=== PATIENT | female | born 1995 | race Caucasian/White ===

== ENCOUNTER 2024-08-30 12:44 | Emergency (ER) | payer OTHER, SELFPAY ==
[2024-08-30 12:44] VITALS: BP 147/99; PULSE 84; RESP 14; TEMP 36.6; O2SAT 98
--- NOTE | 2024-08-30 13:01 | EX.ED.DYSGE1 ---
HPI <Dr. Brad Koch DO - Last Filed: 08/31/24 17:59> History of Present Illness Chief Complaint: Nausea/Vomiting <ADI Espinosa - Last Filed: 08/30/24 19:53> Narrative Narrative: 28-year-old female presents with postoperative nausea and vomiting after a bile duct stent removal earlier this week. She had a cholecystectomy on June 14, 2024 at [facility] complicated by a bile duct injury and had a bile stent placed the next week at [facility]. She has the stent removed 5 days ago by [facility] general surgeon Dr. Isma Schneider. She states she was nauseous and vomiting immediately after the procedure which has continued since then. She has had multiple emergency room visits. On Monday when the stent was removed she went to [facility] and was discharged with Phenergan suppositories. She had 2 visits to [facility] on Monday and and was treated with IV fluids, Zofran, and Haldol. She reports having a negative CT scan. At home she has Zofran ODT, Haldol, and Phenergan suppositories but they are not helping and she feels weak and dehydrated. She has abdominal discomfort. She is not sure when her last bowel movement was. No urinary symptoms. She spoke to her surgeon who did not think this was related to the stent removal. She also has a history of remote appendectomy. PFSH <Dr. Brad Koch DO - Last Filed: 08/31/24 17:59> [facility] Home Medications ?Medication ?Instructions ?Recorded ?Last Taken ?Type haloperidol 5 mg tablet 5 mg PO Q12H PRN PRN 08/30/24 Unknown History nausea/vomiting omeprazole 40 mg capsule,delayed 40 mg PO DAILY 30 days #30 caps 08/30/24 Unknown Rx release ondansetron 4 mg disintegrating 4 mg PO TID PRN PRN nausea 08/30/24 Unknown History tablet promethazine 25 mg rectal 12.5 mg DC Q4H PRN PRN 08/30/24 Unknown History suppository (Promethegan) nausea/vomiting Allergy/AdvReac Type Severity Reaction Status Date / Time No Known Allergies Allergy Verified 08/30/24 12:45 Surgical History (Updated 08/30/24 @ 13:26 by Bernice Aguirre) History of biliary duct stent placement Social History Smoking Status: Unknown if ever smoked ROS <ADI Espinosa - Last Filed: 08/30/24 19:53> ROS ED ROS Narrative Constitutional: Negative for fever, chills, malaise. CVS: Negative for chest pain. Respiratory: Negative for shortness of breath, cough. GI: Positive for abdominal pain, nausea, vomiting. : Negative for dysuria, hematuria or frequency. EXAM <Dr. Brad Koch DO - Last Filed: 08/31/24 17:59> Physical Exam Const Vital Signs: 08/30/24 12:44 08/30/24 15:01 08/30/24 16:14 Temperature 98 F 99 F Temperature Source Temporal Oral Pulse Rate 84 78 67 Respiratory Rate 14 14 18 Blood Pressure 147/99 H 155/91 H 144/96 H Blood Pressure Mean 115 112 112 Pulse Ox 98 98 98 Oxygen Delivery Method Room Air Room Air Room Air <ADI Espinosa - Last Filed: 08/30/24 19:53> Physical Exam Narrative Exam Narrative: CONST: Patient appears uncomfortable lying in bed. EYES: Normal inspection. NECK: Normal inspection. RESP: No respiratory distress, CTAB. CVS: Regular rate and rhythm, no murmur, no gallop. ABD: Soft with generalized tenderness, no guarding or rebound, nondistended. Healed laparoscopic incisions. EXTREMITIES: Normal appearance, no pedal edema. NEURO: Alert and answering questions appropriately. PSYCH: Normal affect. Const Vital Signs: 08/30/24 12:44 08/30/24 15:01 08/30/24 16:14 Temperature 98 F 99 F Temperature Source Temporal Oral Pulse Rate 84 78 67 Respiratory Rate 14 14 18 Blood Pressure 147/99 H 155/91 H 144/96 H Blood Pressure Mean 115 112 112 Pulse Ox 98 98 98 Oxygen Delivery Method Room Air Room Air Room Air MDM <Dr. Brad Koch DO - Last Filed: 08/31/24 17:59> MDM Lab Data Labs: Laboratory Results - last 24 hr 08/30/24 08/30/24 13:15 14:30 WBC 7.9 RBC 4.40 Hgb 11.9 L Hct 35.6 L MCV 80.9 L MCH 27.0 MCHC 33.4 RDW Std Deviation 41.7 RDW Coeff of Renetta 14.0 Plt Count 266 MPV 9.4 Immature Gran % (Auto) 0.400 Neut % (Auto) 68.0 Lymph % (Auto) 24.4 Greenlee % (Auto) 6.4 Eos % (Auto) 0.3 Baso % (Auto) 0.5 Absolute Neuts (auto) 5.4 Absolute Lymphs (auto) 1.93 Nucleated RBC % 0 Sodium 136 Potassium 3.2 L Chloride 101 Carbon Dioxide 20.4 L Anion Gap 14 BUN 7 Creatinine 0.77 Estim Creat Clear Calc 89.18 Est GFR (MDRD) Non-Af 106 BUN/Creatinine Ratio 9.6 L Glucose 96 Calcium 9.5 Total Bilirubin 0.46 AST 25 ALT 16 Alkaline Phosphatase 59 Total Protein 7.1 Albumin 4.6 Globulin 2.6 Albumin/Globulin Ratio 1.8 Lipase 32 Serum , Qual NEGATIVE Urine Opiates Screen NEGATIVE U Buprenorphine Qual NEGATIVE Ur Oxycodone Screen NEGATIVE Urine Methadone Screen NEGATIVE Urine Fentanyl Screen NEGATIVE Ur Barbiturates Screen NEGATIVE Ur Phencyclidine Scrn NEGATIVE Ur Amphetamines Screen NEGATIVE U Benzodiazepines Scrn NEGATIVE Urine Cocaine Screen NEGATIVE U Cannabinoids Screen PRESUMPTIVE POSITIVE Treatment and Re-Evaluation :: Attending note: I have personally performed a face to face assessment of the patient and have reviewed the BERNARDO note. I personally made/approved the management plan and take responsibility for the patient management. I performed a substantive portion of the visit including all aspects of the following. My mckeon findings include: Recurrent vomiting, biliary stent removal 1 day. Here with mother reported with stent placement she had vomiting afterwards also. She had her gallbladder removed in May, shortly after found to have biliary leak from her surgery. Evaluated on and off vomiting since then. She does admit to marijuana use last time 4 days ago. She has not been told of cannabis hyperemesis syndrome in the past. Exam nontoxic soft abdomen no guarding or rebound. She had lab work ordered fluids Zofran and Haldol ordered. Slight hypokalemia on labs. IV replacements given. Tolerating oral intake. Outpatient follow-up. <ADI Espinosa - Last Filed: 08/30/24 19:53> MDM MDM Narrative Medical decision making narrative: History gathered from: Patient and mom Differential includes but not limited to postoperative complication, electrolyte derangement, CLAUDINE, gastritis 28-year-old female presents with nausea/vomiting and epigastric discomfort after bile stent removal 5 days ago. She has a history of cholecystectomy with bile duct injury and stent placement about 5 months ago. She also has history of intermittent nausea vomiting issues. She appears well and nontoxic. Vital stable. Moist oral mucosa. Normal cardiopulmonary exam. Abdomen soft with epigastric tenderness without peritoneal signs. She was given IV fluids, Toradol, Zofran, and Pepcid blood work was obtained. CBC is WNL. CMP only notable for potassium of 3.2. Lipase normal. negative. Urine tox is positive for THC and she states she last smoked 6 days ago before her procedure. I reviewed her outpatient records with a normal CT scan on 08/28/2024. Since there are no new significant blood work abnormalities and she has a benign abdominal exam I do not think repeat CT is needed. After treatment patient still complained of significant nausea and did not want to try p.o. potassium replacement so she was ordered IV potassium 20 mEq and Haldol. She still has some nausea but has not vomited while here and can keep down some water. Her vital signs and blood work shows that she has been hydrating well enough at home to avoid organ injury. She already has antiemetics. I prescribed omeprazole since she has a history of gastritis and this could be contributing to her symptoms. I recommended follow-up with a PCP and her surgeon. She was discharged in stable condition. External records reviewed: 08/28/[address] [facility] [address] abdomen/pelvis with IV Diffuse colonic mucosal thickening versus underfilling. No other acute abnormality. Lab Data Attestation: I reviewed the patient's lab results. Labs: Laboratory Results - last 24 hr 08/30/24 08/30/24 13:15 14:30 WBC 7.9 RBC 4.40 Hgb 11.9 L Hct 35.6 L MCV 80.9 L MCH 27.0 MCHC 33.4 RDW Std Deviation 41.7 RDW Coeff of Renetta 14.0 Plt Count 266 MPV 9.4 Immature Gran % (Auto) 0.400 Neut % (Auto) 68.0 Lymph % (Auto) 24.4 Greenlee % (Auto) 6.4 Eos % (Auto) 0.3 Baso % (Auto) 0.5 Absolute Neuts (auto) 5.4 Absolute Lymphs (auto) 1.93 Nucleated RBC % 0 Sodium 136 Potassium 3.2 L Chloride 101 Carbon Dioxide 20.4 L Anion Gap 14 BUN 7 Creatinine 0.77 Estim Creat Clear Calc 89.18 Est GFR (MDRD) Non-Af 106 BUN/Creatinine Ratio 9.6 L Glucose 96 Calcium 9.5 Total Bilirubin 0.46 AST 25 ALT 16 Alkaline Phosphatase 59 Total Protein 7.1 Albumin 4.6 Globulin 2.6 Albumin/Globulin Ratio 1.8 Lipase 32 Serum , Qual NEGATIVE Urine Opiates Screen NEGATIVE U Buprenorphine Qual NEGATIVE Ur Oxycodone Screen NEGATIVE Urine Methadone Screen NEGATIVE Urine Fentanyl Screen NEGATIVE Ur Barbiturates Screen NEGATIVE Ur Phencyclidine Scrn NEGATIVE Ur Amphetamines Screen NEGATIVE U Benzodiazepines Scrn NEGATIVE Urine Cocaine Screen NEGATIVE U Cannabinoids Screen PRESUMPTIVE POSITIVE Discharge Plan Triage Chief Complaint: Nausea/Vomiting ED Midlevel Provider: Anna Cárdenas ED Provider: Brad Koch Dx/Rx/DC Orders Clinical Impression: Nausea and vomiting, Acute hypokalemia, Acute epigastric pain, Marijuana dependence Instructions: ED Vomiting (Adult) Prescriptions: New omeprazole 40 mg capsule,delayed release(DR/EC) 40 mg PO DAILY 30 Days Qty: 30 0RF No Action haloperidol 5 mg tablet 5 mg PO Q12H PRN PRN (Reason: nausea/vomiting) promethazine [Promethegan] 25 mg suppository 12.5 mg DC Q4H PRN PRN (Reason: nausea/vomiting) ondansetron 4 mg tablet,disintegrating 4 mg PO TID PRN PRN (Reason: nausea) Primary Care Provider: Care Physician,No Primary Referrals: Elida Nicole MD [Non-Staff] - Activity Restrictions/Additional Instructions: Your potassium was low so you were given IV potassium. The rest of your blood work looks normal. The cause of your ongoing nausea and vomiting issues is not clear. Cannabis use can cause cyclical nausea and vomiting issues so I recommend you discontinue this. Use your nausea medicine you have at home. I prescribed antacid medication to treat gastritis. Follow-up with your primary care doctor. Print Language: Djiboutian Disposition Disposition: Home, Self Care Discharge Date/Time: 08/30/24 18:32
[2024-08-30] MEDS: Ondansetron 4 MG/2 ML Vial IV (13:24)
[2024-08-30] MEDS: 0.9% Normal Saline (1000mL) 1,000 ML 999 ML IV (13:24)
[2024-08-30] MEDS: Ketorolac 15 MG/ML Vial IV (13:24)
[2024-08-30 13:26] VITALS: BMI 22.0
[2024-08-30 13:28] LABS: Absolute Lymphocyte Count 1.93 X10^3/uL (0.83-4.51); Absolute Neutrophil Count 5.4 X10^3/uL (2.0-7.7); Basophil# 0.04 X10^3/uL; Basophil% 0.5 % (0-1); Eosinophil# 0.02 X10^3/uL; Eosinophils% 0.3 % (0-5); Hematocrit 35.6 % (37-47); Hemoglobin 11.9 g/dL (12.0-15.0); Lymphocyte # 1.93 X10^3/ul (0.83-4.51); Lymphocyte % 24.4 % (19-41); Mean Corp Hgb Conc 33.4 g/dL (32-36); Mean Corpuscular Volume 80.9 fL (81-99); Mean Platelet Vol. 9.4 fl (6.2-12.0); Monocyte# 0.51 X10^3/uL; Monocyte% 6.4 % (0-10); NRBC Flagged by Analyzer 0 % (0-5); Neutrophil # 5.39 X10^3/uL (2.7-7.7); Platelet Count 266 K/mm3 (150-450); RBC Distribution Width SD 41.7 fl (35.1-43.9); White Blood Count 7.9 K/mm3 (4.4-11.0)
[2024-08-30] MEDS: Famotidine 200 MG/20 ML MDV 20 MG in 0.9% Normal Saline (Pres. free 8 ML 300 MG IV (13:38)
[2024-08-30 13:58] LABS: Internal QC Validated? YES +Cl - CLEAR BKGD; Pregnancy, Serum, hCG Quali. NEGATIVE Negative
[2024-08-30 14:33] LABS: ALB/GLOB Ratio 1.8 RATIO (0.9-2.4); AST(SGOT) 25 U/L (<=31); Alanine Aminotransfer ALT/SGPT 16 U/L (<=34); Albumin, Serum 4.6 g/dL (3.5-5.0); Alkaline Phosphatase 59 U/L (35-104); Anion Gap 14 (5-15); BUN 7 mg/dL (4-19); BUN/Creat Ratio 9.6 RATIO (10-20); Calcium,Total 9.5 mg/dL (7.6-11.0); Carbon Dioxide 20.4 mmol/L (21.0-32.0); Chloride 101 mmol/L (98-108); Creatinine, Serum 0.77 mg/dL (0.70-1.20); EST Glomerular Filtration Rate 106 (>60); Estimated Creatinine Clearance 89.18 ml/min (50-250); Globulin 2.6 g/dL (2.2-4.2); Glucose 96 mg/dL (70-99); Lipase 32 U/L (13-75); Potassium 3.2 mmol/L (3.3-5.1); Protein, Total 7.1 g/dL (5.9-8.4); Sodium Level 136 mmol/L (133-145); Total Bilirubin 0.46 mg/dL (0.00-1.30)
[2024-08-30] MEDS: Haloperidol Lactate 5 MG/ML Vial 2 MG IV (14:59)
[2024-08-30 15:01] VITALS: BP 155/91; PULSE 78; RESP 14; TEMP 37.2; O2SAT 98
[2024-08-30 15:12] LABS: Amphetamine Urine NEGATIVE (<1000 ng/mL); Barbiturate Urine NEGATIVE (< 200 ng/mL); Benzodiazepine Urine NEGATIVE (< 200 ng/mL); Buprenorphine Urine NEGATIVE (< 200 ng/mL); Cocaine Urine NEGATIVE (< 300 ng/mL); Fentanyl, Urine NEGATIVE; Methadone Urine NEGATIVE (< 300 ng/mL); Opiates Urine NEGATIVE (< 300 ng/mL); Oxycodone, Urine NEGATIVE (< 100 ng/mL); PCP Urine NEGATIVE (< 25 ng/mL); THC Urine PRESUMPTIVE POSITIVE (< 50 ng/mL)
[2024-08-30] MEDS: DiphenhydrAMINE 50 MG/ML Syringe 25 MG IV (16:11)
[2024-08-30] MEDS: Potassium Chloride 10mEq/100mL 10 MEQ/100 ML IV.SOLN. 100 MEQ IV BOLUS ×2 (16:11→17:21)
[2024-08-30 16:14] VITALS: BP 144/96; PULSE 67; RESP 18; O2SAT 98
--- NOTE | 2024-08-30 18:31 | ED.RN ---
spoke with PA of mom's request for scolpamine patch. is not going to order that at [facility]- relayed this information to pt and mom. has new prescription for omeprazole.
== END 2024-08-30 18:32 | disposition home or self-care (01) ==
PROVIDERS: Physician Assistant; Emergency Provider Emergency Medicine; Visit Provider Emergency Medicine
DX: R11.2 Nausea with vomiting, unspecified (principal); E87.6 Hypokalemia; R10.13 Epigastric pain; Z90.49 Acquired absence of other specified parts of digestive tract; F12.90 Cannabis use, unspecified, uncomplicated
CPT/HCPCS: 80053; 80307; 83690; 84703; 85025; 96361; 96374; 96375; 99283; A4216; J2405

== ENCOUNTER 2024-09-03 09:58 | Inpatient (IN) | payer OTHER, SELFPAY ==
[2024-09-03] VITALS (8 sets, daily range): BP systolic 110–155; BP diastolic 80–100; PULSE 59–90; RESP 14–18; TEMP 36.4–37.2; O2SAT 97–100; BMI 21.1
--- NOTE | 2024-09-03 10:23 | EX.ED.DYSGE1 ---
HPI History of Present Illness Chief Complaint: Nausea/Vomiting Informant: patient Narrative Narrative: Patient is a 28-year-old female presenting with continued abdominal pain and nausea/vomiting. Patient had gallbladder removed at an outside hospital on June 14. Surgery was complicated by a neck to her common bile duct. She did of having to have a stent placed at [facility]. She states she had the stent removed on the . Patient states that since she woke up from anesthesia she has had consistent abdominal pain, nausea and vomiting. She has been taking Haldol, Zofran and Phenergan suppositories as well as an antacid with no relief of her symptoms. She notes last few days she has been able to tolerate some mashed potatoes and yogurt however the second any liquid touches her mouth she vomits. States her vomit has been nonbloody and looks like antifreeze/[place] yellow. She notes over the past few days she has had decreased urination and started to feel dizzy and lightheaded like she is going to pass out. She has had shaking chills and subjective fevers. She states she continues to have diffuse parabolic abdominal pain. Hot baths do tend to help. She notes that she has had continuous diarrhea since her gallbladder was removed and her stools have been black but she is also been taking [id number] Pepto-Bismol. She went and had an appointment with GI today and was sent here. Patient states she was sent in for IV fluids and to be admitted to the hospital. Will contact GI about their plan for her. Patient does continue to use marijuana. She states she still uses it to help her sleep. [facility] Home Medications ?Medication ?Instructions ?Recorded ?Last Taken ?Type haloperidol 5 mg tablet 5 mg PO Q12H PRN PRN 08/30/24 Unknown History nausea/vomiting omeprazole 40 mg capsule,delayed 40 mg PO DAILY 30 days #30 caps 08/30/24 Unknown Rx release ondansetron 4 mg disintegrating 4 mg PO TID PRN PRN nausea 08/30/24 Unknown History tablet promethazine 25 mg rectal 12.5 mg MS Q4H PRN PRN 08/30/24 Unknown History suppository (Promethegan) nausea/vomiting Allergy/AdvReac Type Severity Reaction Status Date / Time No Known Allergies Allergy Verified 09/03/24 08:54 Surgical History History of biliary duct stent placement Social History Smoking Status: Never smoker ROS ROS ED Constitutional Constitutional ED: Reports chills, fever(s), subjective and sweats Eyes Eyes: Denies change in vision ENT ENT ED: Denies sore throat Cardiovascular Cardiovascular: Denies chest pain Respiratory/Chest Respiratory/Chest: Denies cough or dyspnea Gastrointestinal Gastrointestinal: Reports abdominal pain, diarrhea, nausea and vomiting Genitourinary Genitourinary ED: Reports other Details: Decreased urinary output Musculoskeletal Musculoskeletal: Denies arthralgias or myalgias Integumentary Denies rash Neurologic Neurologic: Reports headache(s) and weakness Psychiatric Psychiatric: Reports anxiety Hematologic/Lymphatic Hematologic/Lymphatic: Denies easy bleeding or easy bruising EXAM Physical Exam Const Vital Signs: 09/03/24 09:58 09/03/24 10:31 09/03/24 11:18 Temperature 97.6 F L 99 F Temperature Source Temporal Oral Pulse Rate 89 90 70 Respiratory Rate 18 18 18 Blood Pressure 155/100 H 139/100 H 116/96 H Blood Pressure Mean 118 113 102 Pulse Ox 100 100 99 Oxygen Delivery Method Room Air Room Air Room Air 09/03/24 12:15 09/03/24 13:01 09/03/24 14:04 Temperature 99 F 99 F Temperature Source Oral Pulse Rate 85 84 Respiratory Rate 18 14 Blood Pressure 138/99 H 125/91 H Blood Pressure Mean 112 102 Pulse Ox 100 100 99 Oxygen Delivery Method Room Air Room Air Positive well nourished General Appearance ED: NAD; Negative for pallor HEENT HEENT Narrative: Minimally dry mucosal membrane Eyes PERRL General Eye ED: Negative for scleral icterus Neck supple Chest Wall inspection of chest normal and palpation of chest normal Chest Narrative: No chest wall crepitus appreciated Resp normal respiratory effort and clear to auscultation bilaterally Cardio regular rate and regular rhythm GI GI Narrative: Abdomen soft. Mildly hypoactive bowel sounds. Nondistended. Surgical scars that are well-healed on the abdomen consistent with prior laparoscopic cholecystectomy. Tenderness to palpation in the right upper quadrant as well as the periumbilical region. No peritoneal signs. Neuro oriented x3 Sensorium / Orientation: alert Motor Exam: Negative for general weakness Psych mental status grossly normal Mood & Affect: anxious Skin no rashes or lesions noted and no wounds General Skin Exam: Negative for jaundice or pallor MDM MDM MDM Narrative Medical decision making narrative: Patient is evaluated for ongoing abdominal pain with nausea and vomiting. History is complicated by cholecystectomy and subsequent biliary duct stent placement. Differential includes gastroparesis, small bowel obstruction, colitis, cannabis hyperemesis syndrome, dehydration, electrolyte abnormalities/CLAUDINE. Patient is given IV fluids and Haldol as well as Pepcid in the emergency room with some improvement of her symptoms. She is no longer retching. Lab work is consistent with some mild dehydration and a potassium of 3.2 with an anion gap of 17 but otherwise largely normal. Serum is negative low suspicion for complication or related symptoms. I did discuss with Dr. Galvan who recommends CT with IV and oral contrast and likely would recommend admission for further symptomatic treatment and consult. CT of the abdomen pelvis shows a right sided colitis. I did discuss with the patient and her mother who are not aware of any family history of inflammatory bowel disease. Dr. Daugherty questions could be ischemic colitis. Given her recent surgery and symptoms will start on antibiotics (Cipro and Flagyl) after discussion with GI. Case discussed with hospitalist for admission, Dr. Valverde. Patient agreeable this plan of care. Lab Data Attestation: I reviewed the patient's lab results. Labs: Laboratory Results - last 24 hr 09/03/24 10:26 WBC 9.7 RBC 5.12 Hgb 13.8 Hct 41.1 MCV 80.3 L MCH 27.0 MCHC 33.6 RDW Std Deviation 39.0 RDW Coeff of Renetta 13.5 Plt Count 372 MPV 9.1 Immature Gran % (Auto) 0.300 Neut % (Auto) 71.3 H Lymph % (Auto) 18.7 L Charles % (Auto) 8.3 Eos % (Auto) 0.9 Baso % (Auto) 0.5 Absolute Neuts (auto) 6.9 Absolute Lymphs (auto) 1.81 Nucleated RBC % 0 Sodium 137 Potassium 3.2 L Chloride 99 Carbon Dioxide 21.6 Anion Gap 17 H BUN 10 Creatinine 0.81 Estim Creat Clear Calc 81.05 Est GFR (MDRD) Non-Af 101 BUN/Creatinine Ratio 11.9 Glucose 98 Calcium 10.1 Total Bilirubin 0.78 Direct Bilirubin 0.33 H AST 17 ALT 16 Alkaline Phosphatase 66 Total Protein 7.9 Albumin 4.9 Globulin 3.0 Lipase 53 Serum , Qual NEGATIVE ABG Data ABG results: ABG 09/03/24 10:39 Specimen Type ANÍBAL Sample Site Not entered VBG pH 7.54 H VBG pO2 55 H VBG HCO3 26 VBG Total CO2 27 VBG O2 Sat (Calc) 92 H VBG Base Excess 4 H POC Mix VBG pCO2 Pt Tmp 30.5 L O2 Delivery Device Not entered Radiography Diagnostic Testing: Clinical Impression(s) from Imaging Studies Abdomen/Pelvis CT 09/03/24 10:34 IMPRESSION: Status post cholecystectomy. Findings suggestive of colitis of the right hemicolon. Minimal amount of free fluid in the pelvis. OVERALL FINAL ASSESSMENT: . LI-RADS is not meant to be used in patients <18 years or patients with cirrhosis due to congenital hepatic fibrosis or due to vascular disorders, because these patients have a lower chance of developing HCC. Reading Location: [place] [id number] Management Discussion w/another healthcare provider: Hospitalist and Pattern Weaver Discharge Plan Triage Chief Complaint: Nausea/Vomiting ED Provider: Mariola Mora Dx/Rx/DC Orders Clinical Impression: History of biliary duct stent placement, Nausea and vomiting, Acute hypokalemia, Marijuana dependence, Right sided colitis Prescriptions: No Action haloperidol 5 mg tablet 5 mg PO Q12H PRN PRN (Reason: nausea/vomiting) promethazine [Promethegan] 25 mg suppository 12.5 mg MS Q4H PRN PRN (Reason: nausea/vomiting) ondansetron 4 mg tablet,disintegrating 4 mg PO TID PRN PRN (Reason: nausea) omeprazole 40 mg capsule,delayed release(DR/EC) 40 mg PO DAILY 30 Days Qty: 30 0RF Primary Care Provider: Care Physician,No Primary Referrals: Care Physician,No Primary [Primary Care Provider] - Print Language: French Disposition Disposition: [facility]
[2024-09-03] MEDS: 0.9% Normal Saline (1000mL) 1,000 ML 999 ML IV (10:27)
[2024-09-03] MEDS: Haloperidol Lactate 5 MG/ML Vial 2 MG IV (10:27)
--- NOTE | 2024-09-03 10:34 | CT_ITS ---
PROCEDURE: ABDOMEN/PELVIS WITH CONTRAST 09/03/2024 REASON FOR EXAM: RECENT [place] TECHNIQUE: Abdomen and pelvis CT with intravenous contrast. Coronal and Sagittal reconstruction series were provided. PATIENT PREPARATION: Per protocol ORAL CONTRAST TYPE: Given. CONTRAST: Isovue 370 VOLUME: 100 mL One or more dose reduction techniques were used (e.g., Automated exposure control, adjustment of the mA and/or kV according to patient size, use of iterative reconstruction technique. RADIATION DOSE SUMMARY: CTDlvol: 12.8 mGy DLP: 338.06 mGycm COMPARISON: None FINDINGS: Lung bases: Unremarkable Liver: Normal size. No mass. Gallbladder: Surgically absent. Spleen: Normal size. Pancreas: Normal size without evidence of mass surrounding inflammation or ductal dilation. Adrenals: Unremarkable Kidneys: Normal renal sizes. No hydronephrosis. Bladder: Unremarkable Reproductive Organs: Normal uterine size and contour. Ovaries are unremarkable. Minimal amount of free fluid is seen in the cul-de-sac. Bowel: Edematous changes are seen in the right hemicolon suggestive of colitis. Scattered diverticula. Appendix: The appendix is not identified. There is no inflammatory process identified in the right lower quadrant to suggest appendicitis. Lymph nodes: Unremarkable. Vasculature: The abdominal aorta and IVC are normal. Peritoneum / Retroperitoneum: Unremarkable Bones: Unremarkable CT/Abdomen/Pelvis WITH Contrast IMPRESSION: Status post cholecystectomy. Findings suggestive of colitis of the right hemicolon. Minimal amount of free fluid in the pelvis. OVERALL FINAL ASSESSMENT: . LI-RADS is not meant to be used in patients <18 years or patients with cirrhosi s due to congenital hepatic fibrosis or due to vascular disorders, because these patients have a lower chance of developing HC C. Reading Location: [place] [id number]
[2024-09-03 10:40] LABS: Absolute Lymphocyte Count 1.81 X10^3/uL (0.83-4.51); Absolute Neutrophil Count 6.9 X10^3/uL (2.0-7.7); Basophil# 0.05 X10^3/uL; Basophil% 0.5 % (0-1); Eosinophil# 0.09 X10^3/uL; Eosinophils% 0.9 % (0-5); Hematocrit 41.1 % (37-47); Hemoglobin 13.8 g/dL (12.0-15.0); Lymphocyte # 1.81 X10^3/ul (0.83-4.51); Lymphocyte % 18.7 % (19-41); Mean Corp Hgb Conc 33.6 g/dL (32-36); Mean Corpuscular Volume 80.3 fL (81-99); Mean Platelet Vol. 9.1 fl (6.2-12.0); Monocyte% 8.3 % (0-10); NRBC Flagged by Analyzer 0 % (0-5); Neutrophil % 71.3 % (47-70); Platelet Count 372 K/mm3 (150-450); RBC Distribution Width CV 13.5 % (11.6-14.6); Red Blood Count 5.12 M/mm3 (4.2-5.4); White Blood Count 9.7 K/mm3 (4.4-11.0)
[2024-09-03 10:42] LABS: Blood Gas Specimen Type VEN; O2 Delivery Device Not entered; SITE Not entered; VBG BASE EXCESS 4 mmol/L (-1.0-3.5); VBG Bicarbonate 26 mmol/L (22-26); VBG PO2 55 mmHg (25-40); VBG SO2 92 % (50-70); VBG TCO2 27 mmol/L (23-33); VBG pCO2 30.5 mmHg (41-51); VBG pH 7.54 (7.32-7.42)
[2024-09-03] MEDS: Famotidine 200 MG/20 ML MDV 20 MG in 0.9% Normal Saline (Pres. free 8 ML 300 MG IV (10:43)
[2024-09-03 10:55] LABS: Internal QC Validated? YES +Cl - CLEAR BKGD; Pregnancy, Serum, hCG Quali. NEGATIVE Negative
[2024-09-03 11:13] LABS: AST(SGOT) 17 U/L (<=31); Alanine Aminotransfer ALT/SGPT 16 U/L (<=34); Albumin, Serum 4.9 g/dL (3.5-5.0); Alkaline Phosphatase 66 U/L (35-104); Anion Gap 17 (5-15); BUN 10 mg/dL (4-19); BUN/Creat Ratio 11.9 RATIO (10-20); Bilirubin, Direct 0.33 mg/dL (0.00-0.30); Calcium,Total 10.1 mg/dL (7.6-11.0); Carbon Dioxide 21.6 mmol/L (21.0-32.0); Chloride 99 mmol/L (98-108); Creatinine, Serum 0.81 mg/dL (0.70-1.20); EST Glomerular Filtration Rate 101 (>60); Estimated Creatinine Clearance 81.05 ml/min (50-250); Glucose 98 mg/dL (70-99); Lipase 53 U/L (13-75); Potassium 3.2 mmol/L (3.3-5.1); Protein, Total 7.9 g/dL (5.9-8.4); Sodium Level 137 mmol/L (133-145); Total Bilirubin 0.78 mg/dL (0.00-1.30)
[2024-09-03] MEDS: metroNIDAZOLE 750 MG in Viaflex Bag 1 BAG 150 MG IV (15:50)
[2024-09-03] MEDS: Ciprofloxacin 400 MG/200 ML BAG 200 MG IV ×2 (15:50→21:00)
--- NOTE | 2024-09-03 16:21 | HP.PCM.HOS_ITS ---
HPI - General General Date of Admission: 09/03/24 Date of Service: 09/03/24 Chief Complaint: Intractable nausea and vomiting HPI Narrative LAM LIVE, is a 28-year-old female with cholecystectomy at [facility] June 14 complicated by fabricio in common bile duct with stent placement and subsequently movement on the presented to [facility] 09/03/2024 from the GI office due to continued abdominal pain, nausea and vomiting. She reports that she woke up from anesthesia from her stent removal she has had consistent abdominal pain, nausea, vomiting. She has been taking Haldol, Zofran, and Phenergan suppositories and antacid with no relief of symptoms. She has had poor p.o. intake for multiple days now with consistent vomiting. Over the past few days she has had decreased urination and has been feeling dizzy and lightheaded. Has had some shaking and subjective fevers with diffuse parabolic abdominal pain. Does have some relief with hot baths. Also notes continuous diarrhea since gallbladder was removed. Of note patient continues to use marijuana because she feels it helps her sleep. In the ED patient afebrile, heart rate 89 with blood pressure 155/100, respiratory rate 18 and pulse ox 100% on room air. CBC overall benign patient's potassium is 3.2 with a normal BUN of 10 and creatinine of 0.81, sodium within normal range at 137. Lipase 53 and liver profile with only abnormality of a slightly elevated direct bilirubin of 0.33. CT of abdomen pelvis obtained which showed findings of previous cholecystectomy and colitis of the right hemicolon with minimal amount of free fluid in the pelvis. Given patient's intractable nausea and vomiting hospitalist contacted for admission. Patient evaluated bedside with family member present. They report since her stent was removed and she woke up from anesthesia she has had profuse nausea and vomiting, she reports that her stomach usually hurts as a result of her retching and hurts less so in and of itself. Has only intermittently been able to keep down soft mild things like mashed potatoes but reports any liquids make her vomit profusely. No diarrhea, had felt some chills at home but no documented fever. No changes in urination. PFSH Home Medications ?Medication ?Instructions ?Recorded ?Last Taken ?Type haloperidol 5 mg tablet 5 mg PO Q12H PRN PRN 5 Unknown History nausea/vomiting omeprazole 40 mg capsule,delayed 40 mg PO DAILY 30 day s #30 caps 08/30/24 Unknown Rx release ondansetron 4 mg disintegrating 4 mg PO TID PRN PRN na usea 08/30/24 Unknown History tablet promethazine 25 mg rectal 12.5 mg MD Q4H PRN PRN 08/30 Unknown History suppository (Promethegan) nausea/vomiting Allergy/AdvReac Type Severity Reaction Status Date / Time No Known Allergies Allergy Verified 09/03/24 08:54 Surgical History History of biliary duct stent placement Social History Smoking Status: Never smoker ROS ROS Narrative General: Maybe some chills at home HENT: Possibly some intermittent headaches, denies stuffy nose, denies sore throat EYES: Denies changes in vision Resp: Does cough sometimes when she vomits, denies shortness of breath Cardiac: Denies chest pain GI: Feels mostly pain in her stomach when she vomits, no diarrhea, intractable nausea and vomiting : Denies changes in urination Extremity: Denies swelling MSK: Denies weakness Neuro: Denies any numbness/tingling Heme: Denies any bleeding or bruising Skin: Denies rashes Psychiatric: Frustrated by her ongoing problem Vital Signs Vital Signs Vital Signs: 09/03/24 09:58 09/03/24 10:31 09/03/24 11:18 Temperature 97.6 F L 99 F Temperature Source Temporal Oral Pulse Rate 89 90 70 Respiratory Rate 18 18 18 Blood Pressure 155/100 H 139/100 H 116/96 H Blood Pressure Mean 118 113 102 Pulse Ox 100 100 99 Oxygen Delivery Method Room Air Room Air Room Air 09/03/24 12:15 09/03/24 13:01 09/03/24 14:04 Temperature 99 F 99 F Temperature Source Oral Pulse Rate 85 84 Respiratory Rate 18 14 Blood Pressure 138/99 H 125/91 H Blood Pressure Mean 112 102 Pulse Ox 100 100 99 Oxygen Delivery Method Room Air Room Air Weight Weight: 54.023 kg Body Mass Index (BMI) 21.1 Physical Exam Narrative General: Alert, oriented, no apparent distress HEENT: Atraumatic, normocephalic Eyes: Anicteric, normal conjunctiva, extraocular movements grossly intact Neck: Supple Respiratory: Clear to auscultation bilaterally, normal respiratory effort Cardiovascular: Regular rate and rhythm GI: Soft, reports a little bit of just general discomfort on the right side of her abdomen but reiterated she does not feel any overt pain Extremities: No edema Musculoskeletal: Moving all extremities Neuro: No overt focal neurological deficits Skin: No rashes appreciated Psych: Cooperative Results Lab / Micro Data 09/03/24 10:26 09/03/24 10:26 Labs: Laboratory Results - last 24 hr 09/03/24 10:26: WBC 9.7, RBC 5.12, Hgb 13.8, Hct 41.1, MCV 80.3 L, MCH 27.0, MCHC 33.6, RDW Std Deviation 39.0, RDW Coeff of Renetta 13.5, Plt Count 372, MPV 9.1, Immature Gran % (Auto) 0.300, Neut % (Auto) 71.3 H, Lymph % (Auto) 18.7 L, [place] % (Auto) 8.3, Eos % (Auto) 0.9, Baso % (Auto) 0.5, Absolute Neuts (auto) 6.9, Absolute Lymphs (auto) 1.81, Nucleated RBC % 0, Sodium 137, Potassium 3.2 L , Chloride 99, Carbon Dioxide 21.6, Anion Gap 17 H, BUN 10, Creatinine 0.81, Estim Creat Clear Calc 81.05, Est GFR (MDRD) Non-Af 101, BUN/Creatinine Ratio 11.9, Glucose 98, Calcium 10.1, Total Bilirubin 0.78, Direct Bilirubin 0.33 H, AST 17, ALT 16, Alkaline Phosphatase 66, Total Protein 7.9, Albumin 4.9, Globulin 3.0, Lipase 53, Serum , Qual NEGATIVE ABG Data ABG results: ABG 09/03/24 10:39 Specimen Type ANÍBAL Sample Site Not entered VBG pH 7.54 H VBG pO2 55 H VBG HCO3 26 VBG Total CO2 27 VBG O2 Sat (Calc) 92 H VBG Base Excess 4 H POC Mix VBG pCO2 Pt Tmp 30.5 L O2 Delivery Device Not entered Imaging Radiology Impression Abdomen/Pelvis CT 09/03/24 10:34 IMPRESSION: Status post cholecystectomy. Findings suggestive of colitis of the right hemicolon. Minimal amount of free fluid in the pelvis. OVERALL FINAL ASSESSMENT: . LI-RADS is not meant to be used in patients <18 years or patients with cirrhosis due to congenital hepatic fibrosis or due to vascular disorders, because these patients have a lower chance of developing HCC. Reading Location: [facility] Assessment & Plan Assessment/Plan (1) Right sided colitis: PLAN: Plan # Intractable nausea and vomiting with findings of right hemicolitis on CT scan -Patient initially endorsed that her abdominal pain was specifically when she was vomiting and felt more like her stomach but on palpation did have some discomfort on the right side of her abdomen but she reiterated that she did not feel like it was overt pain -Her main complaint is inability to tolerate p.o. due to her severe nausea and vomiting - N.p.o. - Supportive care with antiemetics, IV fluids, IV PPI - GI consult - ED physician did contact GI who recommended Cipro and Flagyl #Hypokalemia -Replace -Repeat in the AM # Marijuana use - Strongly advised cessation given patient's ongoing GI problems this may exacerbate or confuse picture with patient's nausea and vomiting #DVT ppx: Lovenox subcu Naty Montero MD Time spent in the patient's overall evaluation, decision-making process, review of diagnostic data, adjustment of management, discussion with other providers, nursing and ancillary staff involved in patient's care documentation, 57 Minutes Charges/Coding Visit Charges Inpatient E&M: 07881 Init Hosp L2
--- NOTE | 2024-09-03 17:29 | EX.PCM.CON.G ---
HPI Consult Data Date of Consult: 09/03/24 HPI Narrative Reason for Consultation: abnormal CT scan HPI Narrative: LAM LIVE, is a 28-year-old female presenting with continued abdominal pain and nausea/vomiting. Patient says that she had gallbladder removed at an outside hospital on June 14. Surgery was complicated by a tear of the mid, bile duct. She underwent ERCP with sphincterotomy and stent placement. She states she had repeat ERCP with stent removed on the . Patient states that since she woke up from anesthesia she has had consistent abdominal pain, nausea and vomiting. She has been taking Haldol, Zofran and Phenergan suppositories as well as an antacid with no relief of her symptoms. She states that she is lost approximately 10 pounds she notes last few days she has been able to tolerate some mashed potatoes and yogurt however the second any liquid touches her mouth she vomits. She has been throwing up a lot of bile. She notes over the past few days she has had decreased urination and started to feel dizzy and lightheaded like she is going to pass out. She has had shaking chills and subjective fevers. In the ED, she was noted to have hypokalemia without nongap metabolic acidosis. This has been persistent over her last 2 blood draws. She did come to our emergency room recently in which her labs look the same. She does admit to smoking marijuana on a daily basis. She states that her main problem is nausea. Hot baths do tend to help. She notes that she has had continuous diarrhea since her gallbladder was removed and her stools have been black but she is also been taking [id number] Pepto-Bismol. She was seen in office today by an nurse practitioner Heidy Green and was sent over to the emergency room for evaluation. CT/Abdomen/Pelvis WITH Contrast IMPRESSION: Status post cholecystectomy. Findings suggestive of colitis of the right hemicolon. Minimal amount of free fluid in the pelvis. PFSH Home Medications ?Medication ?Instructions ?Recorded ?Last Taken ?Type haloperidol 5 mg tablet 5 mg PO Q12H PRN PRN 08/30/24 Unknown History nausea/vomiting omeprazole 40 mg capsule,delayed 40 mg PO DAILY 30 days #30 caps 08/30/24 Unknown Rx release ondansetron 4 mg disintegrating 4 mg PO TID PRN PRN nausea 08/30/24 Unknown History tablet promethazine 25 mg rectal 12.5 mg DC Q4H PRN PRN 08/30/24 Unknown History suppository (Promethegan) nausea/vomiting Allergy/AdvReac Type Severity Reaction Status Date / Time No Known Allergies Allergy Verified 09/03/24 08:54 Surgical History History of biliary duct stent placement Social History Smoking Status: Never smoker ROS Constitutional Constitutional: Denies fatigue, fever(s), poor appetite, weight gain or weight loss Gastrointestinal Gastrointestinal: Denies belching, bloating, change in bowel habits, change in stool character, chewing difficulty, coffee ground emesis, constipation, cramping, diarrhea, dyspepsia, dysphagia, early satiety, excessive flatus, fecal incontinence, heartburn, hematemesis, hematochezia, hemorrhoids, loose stools, melena, nausea, odynophagia, rectal bleeding, tenesmus, vomiting or weight changes Physical Exam Const alert, oriented x3, no apparent distress and healthy appearing General Appearance: cooperative GI normal to inspection, nondistended, normoactive bowel sounds, soft to palpation, non-tender and non-distended Percussion: normal to percussion Rectal Exam: deferred Lab / Micro Data 09/03/24 10:26 09/03/24 10:26 Labs: Laboratory Results - last 24 hr 09/03/24 10:26: WBC 9.7, RBC 5.12, Hgb 13.8, Hct 41.1, MCV 80.3 L, MCH 27.0, MCHC 33.6, RDW Std Deviation 39.0, RDW Coeff of Renetta 13.5, Plt Count 372, MPV 9.1, Immature Gran % (Auto) 0.300, Neut % (Auto) 71.3 H, Lymph % (Auto) 18.7 L, [place] % (Auto) 8.3, Eos % (Auto) 0.9, Baso % (Auto) 0.5, Absolute Neuts (auto) 6.9, Absolute Lymphs (auto) 1.81, Nucleated RBC % 0, Sodium 137, Potassium 3.2 L, Chloride 99, Carbon Dioxide 21.6, Anion Gap 17 H, BUN 10, Creatinine 0.81, Estim Creat Clear Calc 81.05, Est GFR (MDRD) Non-Af 101, BUN/Creatinine Ratio 11.9, Glucose 98, Calcium 10.1, Total Bilirubin 0.78, Direct Bilirubin 0.33 H, AST 17, ALT 16, Alkaline Phosphatase 66, Total Protein 7.9, Albumin 4.9, Globulin 3.0, Lipase 53, Serum , Qual NEGATIVE ABG Data ABG results: ABG 09/03/24 10:39 Specimen Type ANÍBAL Sample Site Not entered VBG pH 7.54 H VBG pO2 55 H VBG HCO3 26 VBG Total CO2 27 VBG O2 Sat (Calc) 92 H VBG Base Excess 4 H POC Mix VBG pCO2 Pt Tmp 30.5 L O2 Delivery Device Not entered Imaging Radiology Impression Abdomen/Pelvis CT 09/03/24 10:34 IMPRESSION: Status post cholecystectomy. Findings suggestive of colitis of the right hemicolon. Minimal amount of free fluid in the pelvis. OVERALL FINAL ASSESSMENT: . LI-RADS is not meant to be used in patients <18 years or patients with cirrhosis due to congenital hepatic fibrosis or due to vascular disorders, because these patients have a lower chance of developing HCC. Reading Location: [facility] Assessment & Plan Assessment/Plan (1) Right sided colitis: (2) Acute epigastric pain: (3) Marijuana dependence: (4) Acute hypokalemia: (5) Nausea and vomiting: PLAN: Differential diagnosis for her symptoms does include post cholecystectomy syndrome, bile acid induced reflux disease, medication induced gastroparesis secondary to marijuana, cyclic vomiting syndrome. Her imaging is also consistent with likely mild ischemic colitis involving the right side of the colon. Persistent Post-Cholecystectomy Syndrome ?refers to the ongoing or new digestive symptoms that can develop after a gallbladder removal surgery.?These symptoms can be similar to those experienced before the surgery or can be entirely new. There was no persistent bile leak seen on her CT scan abdomen pelvis. She may need a HIDA scan and a gastric emptying study. She was placed on Haldol, omeprazole and Zofran plus or minus promethazine rectal suppositories for persistent nausea vomiting. These medicines were not as effective due to the fact that she cannot hold anything down. The patient described experiencing similar episodes of vomiting over the last seven years. She reported that the typical episode started upon waking up in the morning with no preceding stressors and was associated with intense abdominal pain, lethargy, and nausea. Then, the abdominal pain would be followed by multiple episodes of vomiting up to 10 times within a few hours. Every episode might last for five to six?days and would reoccur every two to three months. 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 Recently she had experienced many emergency presentations and multiple admissions and had been treated symptomatically throughout without reaching a conclusive diagnosis. Her past medical history was unremarkable apart from a laparoscopic cholecystectomy with ERCP to repair bile leak secondary to bile duct trauma status post repeat ERCP with stent removal performed recently. Since this is a recent thing as per the patient I do not think she needs to be screened for various metabolic disorders, including urea cycle defect, porphyria and Fabry disease, organic aciduria, fatty acid oxidation disorder, and amino acid disorder; all of them were excluded. Other workups would include immunological and autoimmune disorders. Recommendations: - HIDA scan plus minus MRCP to look for bile acid reflux into the stomach from gallbladder removal - Gastric emptying study - Upper endoscopy - Consider colonoscopy when she can tolerate prep - Ativan 0.5 to 1 mg IV every 8 hours and hold for sedation - Metoclopramide 5 mg IV every 6 hours [id number] - Continue PPI therapy IV - Consider NG tube if she keeps having nausea vomiting Charges/Coding Visit Charges Inpatient E&M: 21332 Init Hosp L3
[2024-09-03] MEDS: Ondansetron 4 MG/2 ML Vial IV (18:03)
[2024-09-03] MEDS: 0.9% Normal Saline (1000mL) 1,000 ML 75 ML IV (18:08)
[2024-09-03] MEDS: Potassium Chloride 10mEq/100mL 10 MEQ/100 ML IV.SOLN. 100 MEQ IV BOLUS ×2 (18:12→19:46)
[2024-09-03 20:52] LABS: Erythrocyte Sedimentation Rate 2 mm/hr (0-30)
[2024-09-03] MEDS: Pantoprazole Sodium 40 MG in 0.9% Normal Saline (100mL MB+) 100 ML 330 MG IV (20:59)
[2024-09-03 21:10] LABS: CPK Total, Creatine Kinase 47 U/L (24-195)
[2024-09-03 21:28] LABS: CRP < 3.00 mg/L (0.0-3.0); LDH 152 U/L (84-246); Magnesium 2.2 mg/dL (1.5-2.2)
[2024-09-03] MEDS: metroNIDAZOLE 500 MG/100 ML BAG 100 MG IV (21:50)
[2024-09-04] VITALS (12 sets, daily range): BP systolic 94–115; BP diastolic 56–83; PULSE 55–92; RESP 12–18; TEMP 36.4–37; O2SAT 96–100
[2024-09-04] MEDS: Lorazepam 2 MG/ML WCH Syringe 0.5 MG IV ×4 (00:16→18:22)
[2024-09-04] MEDS: MELATONIN 10 MG TABLET PO (00:16)
[2024-09-04] MEDS: 0.9% Saline Lock 10 ML Syringe IV ×3 (00:17→20:58)
[2024-09-04 06:07] LABS: Absolute Lymphocyte Count 2.23 X10^3/uL (0.83-4.51); Absolute Neutrophil Count 1.6 X10^3/uL (2.0-7.7); Basophil# 0.04 X10^3/uL; Basophil% 0.9 % (0-1); Eosinophil# 0.16 X10^3/uL; Eosinophils% 3.5 % (0-5); Hematocrit 32.8 % (37-47); Lymphocyte # 2.23 X10^3/ul (0.83-4.51); Lymphocyte % 49.1 % (19-41); Mean Corp Hgb Conc 33.5 g/dL (32-36); Mean Corpuscular Hgb 27.2 pg (27.0-32.0); Mean Platelet Vol. 9.4 fl (6.2-12.0); Monocyte# 0.48 X10^3/uL; Monocyte% 10.6 % (0-10); NRBC Flagged by Analyzer 0 % (0-5); Neutrophil # 1.61 X10^3/uL (2.7-7.7); Neutrophil % 35.5 % (47-70); Platelet Count 246 K/mm3 (150-450); RBC Distribution Width CV 13.3 % (11.6-14.6); RBC Distribution Width SD 39.1 fl (35.1-43.9); Red Blood Count 4.05 M/mm3 (4.2-5.4); White Blood Count 4.5 K/mm3 (4.4-11.0)
[2024-09-04] MEDS: 0.9% Normal Saline (1000mL) 1,000 ML 75 ML IV (06:21)
[2024-09-04] MEDS: metroNIDAZOLE 500 MG/100 ML BAG 100 MG IV ×3 (06:22→21:00)
[2024-09-04 06:33] LABS: ALB/GLOB Ratio 1.9 RATIO (0.9-2.4); AST(SGOT) 11 U/L (<=31); Alanine Aminotransfer ALT/SGPT 10 U/L (<=34); Albumin, Serum 3.7 g/dL (3.5-5.0); Alkaline Phosphatase 47 U/L (35-104); Anion Gap 11 (5-15); BUN 6 mg/dL (4-19); BUN/Creat Ratio 8.4 RATIO (10-20); Calcium,Total 8.6 mg/dL (7.6-11.0); Carbon Dioxide 21.1 mmol/L (21.0-32.0); Chloride 105 mmol/L (98-108); Creatinine, Serum 0.68 mg/dL (0.70-1.20); EST Glomerular Filtration Rate 121 (>60); Estimated Creatinine Clearance 96.55 ml/min (50-250); Glucose 89 mg/dL (70-99); Potassium 3.3 mmol/L (3.3-5.1); Protein, Total 5.7 g/dL (5.9-8.4); Sodium Level 138 mmol/L (133-145)
--- NOTE | 2024-09-04 07:15 | EGD_PTH ---
PATIENT: LAM LIVE LOC: MS3 U#:[id number] AGE/SX: 28/F ROOM: [facility]314 RE09/03/[address]: Dr. Hazel Whalen DO : 1995 BED: 1 DIS: 09/05/2024 SPEC #: [id number] RECD: 09/04/24 09:07 STATUS: LAKSHMI ORDOÑEZ #: [id number] [place]: 09/04/24 07:[address]: Reggie Daugherty DEPT: SURGICAL PATHOLOGY RECD BY: Silverio Sauceda ENTERED: 09/04/24 10:18 SP TYPE: EGD [facility] DR: DO Dr. Naty Kendrick MD No Primary Care Phys Tissues: A - Duodenum, NOS B - Pyloric sphincter C - Gastric mucous membrane Procedures: Immunohistochemical Stains Surgery Specimen Level IV HEADER OPERATION: EGD PRE-OP DIAGNOSIS: Gas bloat syndrome, acute hemorrhoid, encounter for screening for malignant neoplasm of colon, nausea/vomiting TISSUE SUBMITTED: A- Duodenum biopsy, B- Pyloric sphincter biopsy, C- Gastric body biopsy MICROSCOPIC DIAGNOSIS A. Small bowel, duodenum, biopsy: Normal villous morphology. Negative for increased intraepithelial lymphocytes. B. Stomach, pyloric sphincter, biopsy: Gastro-duodenal junction with mild chronic inflammation. C. Stomach, gastric body, biopsy: Superficial fragments of antral mucosa with no specific pathologic change. IHC negative for H.pylori organisms. MICROSCOPIC DESCRIPTION Slides are reviewed. All matched controls reacted appropriately. These tests were developed and their performance characteristics determined by [facility]. They may not have been cleared or approved by the U.S. Food and Drug Administration. The FDA has determined that such clearance or approval is not necessary. The above immunohistochemical/dualISH markers are ordered and reviewed by the Pathologist. GROSS DESCRIPTION A. Received in formalin in a container labeled with the patient's name, date of , and duodenum biopsy are multiple small louis-pink fragments of mucosal tissue measuring 0.7 x 0.4 x 0.2 cm in aggregate. Submitted in toto in A1. B. Received in formalin in a container labeled with the patient's name, date of , and pyloric sphincter biopsy are 2 louis-pink strips of mucosal tissue each measuring 0.5 x 0.3 x 0.2 cm. Submitted in toto in B1. C. Received in formalin in a container labeled with the patient's name, date of , and gastric body biopsy for H. pylori and path are 2 louis-pink fragments of mucosal tissue each measuring 0.3 x 0.2 x 0.2 cm. Submitted in toto in C1. SMB 09-04-2024 CPT:[id number]
--- NOTE | 2024-09-04 07:35 | PCM.PRE.AN2 ---
ASA Classification* ASA Classification ASA Classification: 2 Assessment & Plan Anesthesia* Anesthesia Assessment Anesthesia Assessment: Discussed sedation and/or anesthesia options, risks, benefits, and alternatives with patient/parents/legal guardian/POA. Questions invited. The patient/parents/legal guardian/POA seems to understand and agrees to proceed with anesthesia plan. Reviewed the physical assessment, medical history, allergy history and patient home medications list prior to surgery/procedure/anesthetic and documented any changes. Performed airway and anesthesia risk assessments. Anesthesia Type Anesthesia Type: MAC Anesthesia Focused Assessment* Temperature: 98.6 F Pulse Rate: 77 Blood Pressure: 104/57 Respiratory Rate: 16 Pulse Ox: 97 Airway Assessment Mouth opens: >3 cm Mallampati Score: II Focused Labs Anesthesia Preop lab: CBC WBC 4.5 K/mm3 (4.4-11.0) 09/04/24 05:55 09/04/24 RBC 4.05 M/mm3 (4.2-5.4) L 09/04/24 05:55 09/04/24 Hgb 11.0 g/dL (12.0-15.0) L 09/04/24 05:55 09/04/24 Hct 32.8 % (37-47) L 09/04/24 05:55 09/04/24 Plt Count 246 K/mm3 (150-450) 09/04/24 05:55 09/04/24 CHEMISTRY Potassium 3.3 mmol/L (3.3-5.1) 09/04/24 05:55 09/04/24 Sodium 138 mmol/L (133-145) 09/04/24 05:55 09/04/24 Magnesium 2.2 mg/dL (1.5-2.2) 09/03/24 10:26 09/03/24 Phosphorus 3.0 mg/dL (2.7-4.5) 09/03/24 10:26 09/03/24 BUN 6 mg/dL (4-19) 09/04/24 05:55 09/04/24 Creatinine 0.68 mg/dL (0.70-1.20) L 09/04/24 05:55 09/04/24 Glucose 89 mg/dL (70-99) 09/04/24 05:55 09/04/24 COAG Pre-Assessment Diagnosis/Proposed Procedure Planned Operative Procedure(s): EGD Anesthesia History 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 When Was Last Pacemaker Check QUESTION #4 FULL TEXT: You/Your Family Experience fever (hyperthermia) with Anesthesia Last Oral Intake Last Oral intake: Last Oral Intake NPO since Meds taken in AM with sips of water? Meds patient instructed to take am of surgery PONV PONV - industrial economics professor: PONV - industrial economics professor Female HX of Motion Sickness HX of N/V After Surgery Non-Smoker Duration of Surgery greater than 60 minutes Number of Risk Factors PONV Score Height & Weight Height & Weight: Anesthesia: Height & Weight Height 5 ft 2.99 in 09/03/24 17:16 Weight: 54.023 kg 09/03/24 17:16 Body Mass Index (BMI) 21.1 09/03/24 17:16 Respiratory Assessment Respiratory Assessment - industrial economics professor: Respiratory Tract Infection Hx - industrial economics professor Hx Respiratory Tract Infection No 09/04/24 00:21 STOP Sleep Apnea STOP Sleep Apnea - industrial economics professor: STOP Sleep Apnea - industrial economics professor Hx Hypertension No 09/03/24 17:16 Hx Sleep Apnea No 09/03/24 17:16 CPAP BIPAP Do you snore loudly (louder No 09/03/24 17:16 than talking or can be heard Do you often feel tired/ No 09/03/24 17:16 fatigued/ sleepy during daytime? Has anyone observed you stop No 09/03/24 17:16 breathing during sleep? STOP Results Negative 09/03/24 17:16 QUESTION #5 FULL TEXT : Do you snore loudly (louder than talking or can be heard through closed doors)? 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 Specify any problems Hx of Preganancy in last 3 No 09/03/24 17:16 Months Nurse Filling Out Transfusion KMESSENGE 09/03/24 17:16 & Questions: Date: 09/03/24 09/03/24 17:16 Time: 17:19 09/03/24 17:16 Patient unable to answer at this time (ie. confused, unrespo /Reproduction History /Reproductive History - industrial economics professor: /Reproductive Hx- industrial economics professor Hx Now No 09/04/24 00:21 Gestational Age (in weeks): EDC: Hx Hx Para Hx Section SAB No 09/04/24 00:21 Active Medications Active Medications: Current Medications Generic Name Dose Route Start Last Admin Trade Name Freq PRN Reason Stop Dose Admin Acetaminophen 650 mg 09/03/24 17:15 Acetaminophen 325 Mg Tablet PO Q6H PRN PRN Pain 1-10 Or Fever >100.7 Albuterol Sulfate 2.5 mg 09/03/24 17:15 Albuterol 2.5 Mg/3 Ml Vial.Neb. INHALATION Q2H PRN PRN SOB &/OR WHEEZING Sodium Chloride 1,000 mls @ 125 mls/hr 09/03/24 17:15 09/04/24 06:21 IV 09/04/24 09:56 75 mls/hr .Q8H RENAN Administration Ciprofloxacin 400 mg in 200 mls @ 200 mls/hr 09/03/24 22:00 09/03/24 22:00 Cipro IV Infused Q12 RENAN Infusion Metronidazole 500 mg in 100 mls @ 100 mls/hr 09/03/24 22:00 09/04/24 06:22 Flagyl IV 100 mls/hr Q8 RENAN Administration Pantoprazole Sodium 40 mg/ 110 mls @ 330 mls/hr 09/03/24 22:00 09/03/24 21:19 Sodium Chloride IV Infused Q12 RENAN Infusion Sodium Chloride 250 mls @ 15 mls/hr 09/03/24 17:18 IV .[id number] PRN Saline Flush Sodium Chloride 250 mls @ 15 mls/hr 09/03/24 17:18 IV .[id number] PRN Additional IVPB Infusion Lorazepam 0.5 mg 09/04/24 00:00 09/04/24 06:23 Lorazepam 2 Mg/Ml Wch Syringe IV 0.5 mg Q6 RENAN Administration Melatonin 10 mg 09/03/24 17:15 09/04/24 00:16 Melatonin 10 Mg Tablet PO 10 mg QHS PRN PRN Administration INSOMNIA Ondansetron HCl 4 mg 09/03/24 17:15 09/03/24 18:03 Ondansetron 4 Mg/2 Ml Vial IV 4 mg Q8H PRN PRN Administration NAUSEA/VOMITING Prochlorperazine Edisylate 5 mg 09/03/24 17:15 Prochlorperazine 10 Mg/2 Ml Vial IV Q4H PRN PRN Breakthrough nausea/vomiting Promethazine HCl 25 mg 09/03/24 17:15 Promethazine 25 Mg Suppos. RC Q6H PRN PRN Breakthrough nausea/vomiting Senna/Docusate Sodium 2 tablet 09/03/24 17:15 Senna/Docusate Sodium 1 Tablet PO BID PRN PRN Constipation Sodium Chloride 10 - 40 ml 09/03/24 17:18 09/04/24 00:17 0.9% Saline Lock 10 Ml Syringe IV 10 ml UD PRN Administration SALINE FLUSH PFSH Home Medications ?Medication ?Instructions ?Recorded ?Last Taken ?Type haloperidol 5 mg tablet 5 mg PO Q12H PRN PRN 08/30/24 Unknown History nausea/vomiting omeprazole 40 mg capsule,delayed 40 mg PO DAILY 30 days #30 caps 08/30/24 Unknown Rx release ondansetron 4 mg disintegrating 4 mg PO TID PRN PRN nausea 08/30/24 Unknown History tablet promethazine 25 mg rectal 12.5 mg MA Q4H PRN PRN 08/30/24 Unknown History suppository (Promethegan) nausea/vomiting Allergy/AdvReac Type Severity Reaction Status Date / Time No Known Allergies Allergy Verified 09/03/24 08:54 Surgical History History of biliary duct stent placement Social History Smoking Status: Never smoker Review of Systems (Anesthesia) ROS Narrative System reviewed and no additional complaints, except as documented.
--- NOTE | 2024-09-04 07:56 | PN.HOSP_ITS ---
Reason for Visit Reason for Visit: Intractable nausea and vomiting Subjective Subjective Patient states she has not been using marijuana much recently as we did discuss the potential for marijuana could cause cyclic vomiting syndrome. She states she is feeling better today and would like to try further clear liquid diets after her HIDA scan. Understands that she will need to remain n.p.o. for HIDA scan. We discussed the metabolic workup pending as well. Objective Data Objective Data Vital Signs: Vital Signs Temp Pulse Resp BP Pulse Ox O2 Del Method 98.6 F 77 16 104/57 L 97 Room Air 09/04/24 07:36 09/04/24 07:36 09/04/24 07:36 09/04/24 07:36 09/04/24 07:36 09/04/24 06:20 Oxygen Delivery Method Room Air Weight: 54.023 kg Body Mass Index (BMI) 21.1 Intake & Output: Intake and Output for Last 24 Hours 09/02/24 09/03/24 09/04/24 23:59 23:59 23:59 Intake Total 1969 1016.25 / 1016.25 Balance 1969 1016. / 1016.25 Lab / Micro Data 09/04/24 05:55 09/04/24 05:55 Labs: Laboratory Results - last 24 hr 09/03/24 10:26: WBC 9.7, RBC 5.12, Hgb 13.8, Hct 41.1, MCV 80.3 L, MCH 27.0, MCHC 33.6, RDW Std Deviation 39.0, RDW Coeff of Renetta 13.5, Plt Count 372, MPV 9.1, Immature Gran % (Auto) 0.300, Neut % (Auto) 71.3 H, Lymph % (Auto) 18.7 L, Mcnairy % (Auto) 8.3, Eos % (Auto) 0.9, Baso % (Auto) 0.5, Absolute Neuts (auto) 6.9, Absolute Lymphs (auto) 1.81, Nucleated RBC % 0, ESR 2, Sodium 137, P otassium 3.2 L, Chloride 99, Carbon Dioxide 21.6, Anion Gap 17 H, BUN 10, Creatinine 0.81, Estim Creat Clear Calc 81.05, Est GFR (MDRD) Non-Af 101, BUN/Creatinine Ratio 11.9, Glucose 98, Calcium 10.1, Phosphorus 3.0, Magnesium 2.2, Total Bilirubin 0.78, Direct Bilirubin 0.33 H, AST 17, ALT 16, Alkaline Phosphatase 66, Lactate Dehydrogenase 152, Total Creatine Kinase 47, C-React Prot Ext Range < 3.00, Total Protein 7.9, Albumin 4.9, Globulin 3.0, Lipase 53, Serum , Qual NEGATIVE 09/04/24 05:55: WBC 4.5, RBC 4.05 L, Hgb 11.0 L, Hct 32.8 L, MCV 81.0, MCH 27.2, MCHC 33.5, RDW Std Deviation 39.1, RDW Coeff of Renetta 13.3, Plt Count 246, MPV 9.4, Immature Gran % (Auto) 0.400, Neut % (Auto) 35.5 L, Lymph % (Auto) 49.1 H, Mcnairy % (Auto) 10.6 H, Eos % (Auto) 3.5, Baso % (Auto) 0.9, Absolute Neuts (auto) 1.6 L, Absolute Lymphs (auto) 2.23, Nucleated RBC % 0, Sodium 138, Potassium 3.3, Chloride 105, Carbon Dioxide 21.1, Anion Gap 11, BUN 6, Creatinine 0.68 L, Estim Creat Clear Calc 96.55, Est GFR (MDRD) Non-Af 121, BUN/Creatinine Ratio 8.4 L, Glucose 89, Calcium 8.6, Total Bilirubin 0.50, AST 11, ALT 10, Alkaline Phosphatase 47, Total Protein 5.7 L, Albumin 3.7, Globulin 2.0 L, Albumin/Globulin Ratio 1.9, ERIKA-1 Antibody TNP, Sm (Bardales) Antibody TNP, COMBINATION MACHINE TOOL OPERATOR Antibody TNP, Scl-70 Scleroderma Ab TNP, Antichromatin Antibodies TNP, Centromere B Antibody TNP ABG Data ABG results: ABG 09/03/24 10:39 Specimen Type ANÍBAL Sample Site Not entered VBG pH 7.54 H VBG pO2 55 H VBG HCO3 26 VBG Total CO2 27 VBG O2 Sat (Calc) 92 H VBG Base Excess 4 H POC Mix VBG pCO2 Pt Tmp 30.5 L O2 Delivery Device Not entered Radiography Diagnostic Testing: Radiology Impression Abdomen/Pelvis CT 09/03/24 10:34 IMPRESSION: Status post cholecystectomy. Findings suggestive of colitis of the right hemicolon. Minimal amount of free fluid in the pelvis. OVERALL FINAL ASSESSMENT: . LI-RADS is not meant to be used in patients <18 years or patients with cirrhosis due to congenital hepatic fibrosis or due to vascular disorders, because these patients have a lower chance of developing HCC. Reading Location: [place] [id number] Physical Exam Const alert, oriented x3, no apparent distress, average body habitus and well nourished Constitutional Narrative: Young, white female, lying in left side-lying, appears comfortable, nontoxic HEENT head/scalp atraumatic and moist oral mucous membranes Head and Scalp: normocephalic Resp normal respiratory effort, no retractions, no use of accessory muscles and clear to auscultation bilaterally Auscultation: Negative for rales, rhonchi or wheezes Cardio regular rate, regular rhythm, S1 normal heart sound, S2 normal heart sound, no murmurs, no rub, no gallops and no clicks GI normal to inspection, nondistended, normoactive bowel sounds, soft to palpation and non-tender Extremity no clubbing, cyanosis or edema Extremity Narrative: Pedal and radial pulses are 2+ Neuro moves all extremities Speech: speech normal Psych Psych Narrative: Initially bit agitated but as we talked more she de-escalated and interacted well, eye contact was good Assessment & Plan Assessment/Plan (1) Right sided colitis: (2) History of biliary duct stent placement: (3) Acute hypokalemia: (4) Nausea and vomiting: PLAN: Plan 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 Daugherty Right sided hemicolitis - Continue Cipro and Flagyl Hypokalemia -Resolved Bipolar disorder - Patient states she was treated with medicines for a long time but did not like the side effects so she started using marijuana to control her bipolar disorder - Recommend outpatient psychiatry follow-up Marijuana use -Strongly advised cessation given GI issues with ongoing nausea and vomiting as this could confound the clinical picture due to the ability of marijuana use to incite cyclic vomiting syndrome DVT prophylaxis - Continue Lovenox CODE STATUS -full code Charges/Coding Visit Charges Inpatient E&M: 96352 Subs Hosp L2
--- NOTE | 2024-09-04 08:22 | PN_ITS ---
Progress Note Patient has been n.p.o. since midnight. Her nausea is little bit better. She still complain of epigastric pain. Physical Exam Const alert, oriented x3, no apparent distress and healthy appearing General Appearance: cooperative GI normal to inspection, nondistended, normoactive bowel sounds, soft to palpation, non-tender and non-distended Percussion: normal to percussion Rectal Exam: deferred Assessment & Plan Assessment/Plan (1) Right sided colitis: (2) Acute epigastric pain: (3) Marijuana dependence: (4) Acute hypokalemia: (5) Nausea and vomiting: PLAN: Differential diagnosis for her symptoms does include post cholecystectomy syndrome, bile acid induced reflux disease, medication induced gastroparesis secondary to marijuana, cyclic vomiting syndrome. Her imaging is also consistent with likely mild ischemic colitis involving the right side of the colon. Persistent Post-Cholecystectomy Syndrome ?refers to the ongoing or new digestive symptoms that can develop after a gallbladder removal surgery.?These symptoms can be similar to those experienced before the surgery or can be entirely new. There was no persistent bile leak seen on her CT scan abdomen pelvis. She may need a HIDA scan and a gastric emptying study. She was placed on Haldol, omeprazole and Zofran plus or minus promethazine rectal suppositories for persistent nausea vomiting. These medicines were not as effective due to the fact that she cannot hold anything down. The patient described experiencing similar episodes of vomiting over the last seven years. She reported that the typical episode started upon waking up in the morning with no preceding stressors and was associated with intense abdominal pain, lethargy, and nausea. Then, the abdominal pain would be followed by multiple episodes of vomiting up to 10 times within a few hours. Every episode might last for five to six?days and would reoccur every two to three mon ths. 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 Recently she had experienced many emergency presentations and multiple admissions and had been treated symptomatically throughout without reaching a conclusive diagnosis. Her past medical history was unremarkable apart from a laparoscopic cholecystectomy with ERCP to repair bile leak secondary to bile duct trauma status post repeat ERCP with stent removal performed recently. Since this is a recent thing as per the patient I do not think she needs to be screened for various metabolic disorders, including urea cycle defect, porphyria and Fabry disease, organic aciduria, fatty acid oxidation disorder, and amino acid disorder; all of them were excluded. Other workups would include immunolo gical and autoimmune disorders. Recommendations: - HIDA scan plus minus MRCP to look for bile acid reflux into the stomach from gallbladder removal - Gastric emptying study - Upper endoscopy - Consider colonoscopy when she can tolerate prep - Ativan 0.5 to 1 mg IV every 8 hours and hold for sedation - Metoclopramide 5 mg IV every 6 hours [id number] - Continue PPI therapy IV - Consider NG tube if she keeps having nausea vomiting 09/04/2024-she does have a slight decrease in hemoglobin from 13.5 down to 11. We will evaluate upper GI tract for any signs of blood loss anemia. Patient was explained alternatives, risk, benefits include not withstanding bleeding, infection, sepsis, perforation, need for emergent . She will have an ASA of 3. Visit Charges Inpatient E&M: 85607 [facility] Hosp L3
--- NOTE | 2024-09-04 08:51 | OP.EGD_ITS ---
Patient Name: Ladan Trinidad Procedure Date: 09/04/2024 8:23 AM Date of : 1995 Age: 28 Procedure: Upper GI endoscopy Indications: Epigastric abdominal pain, Functional Dyspepsia, Indigestion Providers: Reggie Daugherty DO Medicines: Monitored Anesthesia Care Patient Profile: This is a 28 year old female. Refer to note in patient chart for documentation of history and physical. Patient has symptoms of acute dyspepsia, acute nausea and acute vomiting. Complications: No immediate complications. Procedure: Pre-Anesthesia Assessment: - Prior to the procedure, a History and Physical was performed, and patient medications and allergies were reviewed. The patient is competent. The risks and benefits of the procedure and the sedation options and risks were discussed with the patient. All questions were answered and informed consent was obtained. Patient identification and proposed procedure were verified by the physician in the pre-procedure area. Mental Status Examination: alert and oriented. Airway Examination: normal oropharyngeal airway and neck mobility. Respiratory Examination: clear to auscultation. CV Examination: normal. Prophylactic Antibiotics: The patient does not require prophylactic antibiotics. Prior Anticoagulants: The patient has taken no anticoagulant or antiplatelet agents except for NSAID medication. ASA Grade Assessment: II - A patient with mild systemic disease. After reviewing the risks and benefits, the patient was deemed in satisfactory condition to undergo the procedure. The anesthesia plan was to use monitored anesthesia care (MAC). Immediately prior to administration of medications, the patient was re-assessed for adequacy to receive sedatives. The heart rate, respiratory rate, oxygen saturations, blood pressure, adequacy of pulmonary ventilation, and response to care were monitored throughout the procedure. The physical status of the patient was re-assessed after the procedure. After obtaining informed consent, the endoscope was passed under direct vision. Throughout the procedure, the patient's blood pressure, pulse, and oxygen saturations were monitored continuously. The gastroscope was introduced through the mouth, and advanced to the third part of the duodenum. Small bowel enteroscopy was deemed necessary. The upper GI endoscopy was accomplished without difficulty. The patient tolerated the procedure well. Scope In: 8:39:31 AM Scope Out: 8:43:13 AM Total Procedure Duration Time 0 hours 3 minutes 42 seconds Findings: The examined esophagus was normal. Patchy mildly erythematous mucosa without bleeding was found in the gastric body and at the pylorus. Biopsies were taken with a cold forceps for histology. Verification of patient identification for the specimen was done. Estimated blood loss was minimal. Biopsies were taken with a cold forceps for Helicobacter pylori testing. Verification of patient identification for the specimen was done. Estimated blood loss was minimal. Patchy mildly erythematous mucosa without active bleeding and with no stigmata of bleeding was found in the third portion of the duodenum. Biopsies were taken with a cold forceps for histology. Verification of patient identification for the specimen was done. Estimated blood loss was minimal. Impression: - Normal esophagus. - Erythematous mucosa in the gastric body and pylorus. Biopsied. - Erythematous duodenopathy. Biopsied. Recommendation: - Discharge patient to home. - Resume previous diet. - Continue present medications. - Await pathology results. Procedure Code(s): --- Professional --- 20588, Small intestinal endoscopy, enteroscopy beyond second portion of duodenum, not including ileum; with biopsy, single or multiple CPT copyright 2021 [employer]. All rights reserved. The codes documented in this report are preliminary and upon photovoltaic fabrication technician review may be revised to meet current compliance requirements. Reggie Daugherty DO 09/04/2024 8:51:10 AM This report has been signed electronically. Number of Addenda: 0 Note Initiated On: 09/04/2024 8:23 AM
--- NOTE | 2024-09-04 08:57 | PCM.POST.ANE ---
Anesthesia: Postop Eval I Current Vital Signs Temperature: 97.5 F Pulse Rate: 57 Blood Pressure: 115/62 Respiratory Rate: 14 Pulse Ox: 97 Oxygen Delivery Method: Room Air Assessment Airway patent: Yes Spontaneous unlabored respirations: Yes Mental status: Asleep nausea: No Vomiting: No Anesthesia Complication: No Fluid Hydration Crystalloid volume administer (ml): 300 Total IV fluid infused: 300 Progress Note Anesthesia document: Postop Eval 1 completed: Yes
--- NOTE | 2024-09-04 09:29 | PCM.POSTANE2 ---
Anesthesia Postop Eval I Sum Postop Eval Completion status Anesthesia document: Postop Eval 1 completed: Yes Anesthesia Postop Eval I Summary Anesthesia Postop Eval I Summary: Anesthesia Postop Eval I: Assessment Summary Airway patent Yes 09/04/24 08:57 [email or web address] Spontaneous unlabored Yes 09/04/24 08:57 [email or web address] respirations Mental status Asleep 09/04/24 08:57 [email or web address] nausea No 09/04/24 08:57 [email or web address] Vomiting No 09/04/24 08:57 [email or web address] Anesthesia Postop Eval I: Fluid Summary Crystalloid volume administer 300 09/04/24 08:57 [email or web address] (ml) Colloids volume administered ( ml) Blood Product volume administered (ml) Total IV fluid infused 300 09/04/24 08:57 [email or web address] Anesthesia Postop Eval I: Summary Notes Anesthesia Complication No 09/04/24 08:57 [email or web address] Anesthesia Complication Comment: Post-operative progress note Anesthesia: Postop Eval II Evaluation Mental status: Awake Pain Level: 0 nausea: No Vomiting: No
[2024-09-04] MEDS: Pantoprazole Sodium 40 MG in 0.9% Normal Saline (100mL MB+) 100 ML 330 MG IV ×2 (09:56→20:59)
--- NOTE | 2024-09-04 10:08 | CASEMGMT ---
CATIE ORTEGA Assessment: Face to Face with pt for initial transition planning/care coordination assessment. CATIE ORTEGA introduced self and role at [facility], pt voices understanding and consents to assessment. Pt is A&O x4 and answers all questions appropriately at this time. Pt lying in bed in no distress. Pt did not open eyes during assessment and was short with her answers. Care providers, pharmacy, and demographics verified/updated. Admitting Dx: intractable nausea and vomiting Strata Score: 1 PCP:Pt does not have PCP. Pt states she is trying to get into where her mother goes. She does not know the name of the doctor. Pt declines the need for a list of local healthcare providers. Pt denies need for assistance with this. Specialists:Denies having any specialists or a GI. Preferred Pharmacy: [facility] Insurance: [facility] Prescription Benefit: yes LNOK: eMlani Minor, mother Living Arrangements: Pt lives with mother and stepdad in a two story home with 4 steps to enter. Pt reports she is I in ADL/IADLs and denies concerns at home. Transportation: Pt drives self and denies concerns with transportation. DME:Denies HHC/SNF: Denies hx of Pt states no concerns with going home at time of dc. Pt states no further concerns/needs. CM to follow. Advised pt to ask CM if any further questions/concerns/needs arise, voices understanding. Pt Goal: Home Plan: Home [place] HADDAD CM
--- NOTE | 2024-09-04 10:30 | NM_ITS ---
PROCEDURE: HEPATOBILLIARY IMAGING 09/04/2024 REASON FOR EXAM: BILE LEAK Status post cholecystectomy. Biliary stent removal. TECHNIQUE: Intravenous Choletec with planar imaging of the abdomen. RADIOPHARMACEUTICAL: 5.8 mCi of technetium labeled mebrofenin COMPARISON: None FINDINGS: There is good uptake of the radiopharmaceutical by the liver. The gallbladder is not visualized in keeping with prior cholecystectomy. Radiopharmaceutical is seen within the common bile duct as well as in the proximal bowel. No evidence of bile leak. NM/Hepatobilliary Imaging IMPRESSION: No evidence of bile leak. Reading Location: [place] [id number]
[2024-09-04] MEDS: Metoclopramide 10 MG/2 ML Vial 5 MG IV ×2 (13:03→18:23)
[2024-09-04] MEDS: Ciprofloxacin 400 MG/200 ML BAG 200 MG IV ×2 (13:40→21:57)
[2024-09-05] MEDS: Metoclopramide 10 MG/2 ML Vial 5 MG IV ×2 (00:43→06:35)
[2024-09-05] MEDS: Lorazepam 2 MG/ML WCH Syringe 0.5 MG IV ×2 (00:43→06:36)
[2024-09-05 03:30] VITALS: BP 96/58; PULSE 81; RESP 15; TEMP 36.8; O2SAT 97
[2024-09-05] MEDS: metroNIDAZOLE 500 MG/100 ML BAG 100 MG IV (06:37)
[2024-09-05 07:30] LABS: Hematocrit 32.5 % (37-47); Hemoglobin 10.9 g/dL (12.0-15.0); Mean Corp Hgb Conc 33.5 g/dL (32-36); Mean Corpuscular Hgb 27.5 pg (27.0-32.0); Mean Corpuscular Volume 82.1 fL (81-99); Mean Platelet Vol. 9.4 fl (6.2-12.0); Platelet Count 254 K/mm3 (150-450); RBC Distribution Width CV 13.3 % (11.6-14.6); Red Blood Count 3.96 M/mm3 (4.2-5.4); White Blood Count 6.7 K/mm3 (4.4-11.0)
[2024-09-05 07:56] LABS: ALB/GLOB Ratio 1.9 RATIO (0.9-2.4); AST(SGOT) 11 U/L (<=31); Alanine Aminotransfer ALT/SGPT 8 U/L (<=34); Albumin, Serum 3.6 g/dL (3.5-5.0); Alkaline Phosphatase 44 U/L (35-104); Anion Gap 8 (5-15); BUN 4 mg/dL (4-19); BUN/Creat Ratio 5.3 RATIO (10-20); Calcium,Total 8.6 mg/dL (7.6-11.0); Carbon Dioxide 22.7 mmol/L (21.0-32.0); Chloride 107 mmol/L (98-108); Creatinine, Serum 0.74 mg/dL (0.70-1.20); EST Glomerular Filtration Rate 112 (>60); Estimated Creatinine Clearance 88.72 ml/min (50-250); Globulin 1.9 g/dL (2.2-4.2); Glucose 94 mg/dL (70-99); Potassium 3.4 mmol/L (3.3-5.1); Protein, Total 5.5 g/dL (5.9-8.4); Sodium Level 138 mmol/L (133-145); Total Bilirubin 0.35 mg/dL (0.00-1.30)
--- NOTE | 2024-09-05 08:09 | DS.PCM_ITS ---
Providers Date of Admission: 09/03/24 Date of Discharge: 09/05/24 Primary Care Physician: Mehnaz Primary Care Phys Consultations 09/03/24 17:15 Consult: Gastroenterology Routine Consulting Provider: Tanya Gastroenterology Reason for Consult: intractable nv and R hemicolitis, sent from GI office EMERGENT Consult: No MD Notified: Yes Date Notified: 09/03/24 Time Notified: 17:09 Method of Notification: ED Physician Initiated Reason For Visit: INTRACTABLE NAUSEA AND VOMITING Diagnosis Discharge Diagnosis (1) Right sided colitis: Status: Acute Code(s): K52.9 - Noninfective gastroenteritis and colitis, unspecified (2) History of biliary duct stent placement: Status: Acute Code(s): Z98.890 - Other specified postprocedural states (3) Acute hypokalemia: Status: Acute Code(s): E87.6 - Hypokalemia (4) Nausea and vomiting: Status: Acute Code(s): R11.2 - Nausea with vomiting, unspecified Plan 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 Daugherty Right sided hemicolitis - Continue Cipro and Flagyl Hypokalemia -Resolved Bipolar disorder - Patient states she was treated with medicines for a long time but did not like the side effects so she started using marijuana to control her bipolar disorder - Recommend outpatient psychiatry follow-up Marijuana use -Strongly advised cessation given GI issues with ongoing nausea and vomiting as this could confound the clinical picture due to the ability of marijuana use to incite cyclic vomiting syndrome DVT prophylaxis - Continue Lovenox CODE STATUS -full code Medications at Discharge Home Medications haloperidol 5 mg tablet 5 mg PO Q12H PRN PRN nausea/vomiting 08/30/24 omeprazole 40 mg capsule,delayed release 40 mg PO DAILY 30 days #30 caps 08/30/24 ondansetron 4 mg disintegrating tablet 4 mg PO TID PRN PRN nausea 08/30/24 promethazine 25 mg rectal suppository (Promethegan) 12.5 mg GA Q4H PRN PRN nausea/vomiting 08/30/24 amoxicillin 875 mg-potassium clavulanate 125 mg tablet 1 tab PO BID #18 tabs 09/05/24 Hospital Course Operations None Procedures EGD and - (HIDA scan/CT abdomen and pelvis) Summary of Care Provided Minutes Spent on Discharge: 37 Hospital Course: Ms. Trinidad is a 28-year-old white female who presented to the emergency department from Dr. Daugherty's office on 09/03/2024 with chief complaint of intractable nausea and vomiting. She had a cholecystectomy done at [facility] on 06/14/2024 that is complicated by thickened common bile duct. She had an ERCP at which time a stent had to be placed and subsequently was removed. Patient reported that since she woke up from anesthesia after her stent removal she has had consistent abdominal pain nausea, and vomiting. At home she is taking Haldol, Zofran, and Phenergan suppositories as well as an antiacid with no symptom relief. She reported poor p.o. intake for several days with ongoing vomiting. Reported lightheadedness and decreased urination. Patient did report that she gets some relief with hot baths. She does use marijuana to treat her bipolar disorder. She states she had previously been on medication for her bipolar disorder but they made her suicidal and she stopped them and started using marijuana. Vital signs on presentation were unremarkable. CBC was unremarkable. She had mild hypokalemia with potassium of 3.2 but renal function was normal with a BUN of 10 and serum creatinine of 0.81. Blood sugar was normal. A VBG was obtained she had a normal pH. CT of the abdomen pelvis was performed and showed previous cholecystectomy with findings consistent with colitis in the right hemicolon and a minimal amount of free air in the pelvis. Due to her ongoing nausea and vomiting she was admitted to the medical floor placed on IV fluids, antiemetics, pain medication and gastroenterology was consulted. Initially there was concern of persistent postcholecystectomy syndrome. A HIDA scan was performed and no bile leak was identified. She was taken for an EGD and this showed a normal esophagus with erythematous mucosa in the gastric body at the pylorus which was biopsied and erythematous duodenopathy which was biopsied. Biopsies were pending at the time of discharge. She was hungry after her scope so she was started on clear liquid diet which she tolerated well. Her diet was advanced to a regular diet on the a.m. of 08/26/2024 which she tolerated well. She had no persistent nausea vomiting in the hospital. We did discuss with her that this may be related to her ongoing marijuana use and potential diagnosis of cyclic vomiting syndrome. The patient was amenable to meeting with psychiatry for better treatment of her bipolar disorder to stop using marijuana if we have that this did make her feel better. She was given information for Dr. Foote and will call make appointment. She was instructed to not utilize marijuana and a follow-up appointment with Dr. Daugherty was made. With regards to her colitis she was treated with antibiotics while she was in the hospital and was discharged on Augmentin for another 9 days. Follow-up appointment was made for Dr. Daugherty prior to discharge. Discharge diagnoses: Intractable nausea vomiting secondary to cyclic vomiting syndrome Colitis Hypokalemia-resolved Bipolar disorder Marijuana use Physical Exam Const alert, oriented x3, no apparent distress, average body habitus, healthy appearing and well nourished Constitutional Narrative: Young, white female, sitting up in bed watching television, appears comfortable, nontoxic, very pleasant General Appearance: cooperative, comfortable, well kempt and well developed Exam Limitations: no limitations HEENT normocephalic, head/scalp atraumatic, hearing grossly normal bilaterally and moist oral mucous membranes HEENT Narrative: Mallampati 2, no thrush Eyes EOMs intact bilaterally Eyes Narrative: No scleral icterus Neck supple Neck Narrative: Trachea midline Resp normal respiratory effort, no retractions, no use of accessory muscles and clear to auscultation bilaterally Auscultation: Negative for rales, rhonchi or wheezes Cardio regular rate, regular rhythm, S1 normal heart sound, S2 normal heart sound, no murmurs, no rub, no gallops and no clicks GI normal to inspection, nondistended, normoactive bowel sounds, soft to palpation and non-tender Extremity no clubbing, cyanosis or edema Extremity Narrative: Pedal and radial pulses are 2+ Skin no jaundice, no petechiae and no mottling Neuro oriented x3, moves all extremities and no focal motor deficits Speech: speech normal Psych affect normal Psych Narrative: Interacts appropriately, very pleasant, eye contact is good Weight / BMI Weight Weight: 54.023 kg Body Mass Index (BMI) 21.1 ABG / Lab / Microbiology Data 09/05/24 07:10 09/05/24 07:10 Laboratory: Laboratory Results - last 24 hr 09/04/24 05:55: ERIKA-1 Antibody <0.2, SS-A/Ro IgG Antibody < 0.2, SS-B/La IgG Antibody < 0.2, Sm (Bardales) Antibody <0.2, CLAIM PROCESSOR Antibody <0.2, Scl-70 Scleroderma Ab <0.2, Double Strand DNA Ab <1, Antichromatin Antibodies <0.2, Centromere B Antibody <0.2 09/05/24 07:10: WBC 6.7, RBC 3.96 L, Hgb 10.9 L, Hct 32.5 L, MCV 82.1, MCH 27.5, MCHC 33.5, RDW Std Deviation 40.0, RDW Coeff of Renetta 13.3, Plt Count 254, MPV 9.4, Sodium 138, Potassium 3.4, Chloride 107, Carbon Dioxide 22.7, Anion Gap 8, BUN 4, Creatinine 0.74, Estim Creat Clear Calc 88.72, Est GFR (MDRD) Non-Af 112, BUN/Creatinine Ratio 5.3 L, Glucose 94, Calcium 8.6, Total Bilirubin 0.35, AST 11, ALT 8, Alkaline Phosphatase 44, Total Protein 5.5 L, Albumin 3.6, Globulin 1.9 L, Albumin/Globulin Ratio 1.9 Radiography Diagnostic Testing: Radiology Impression Hepatobiliary Scan Nuclear Medicine 09/04/24 10:30 IMPRESSION: No evidence of bile leak. Reading Location: [facility] D/C Instructions DC O2, CPAP, BIPAP Needs Home O2 Discharge instructions: No Meaningful Use Info Meaningful Use Meaningful Use Diagnoses (Choose all that apply): None applicable Ischemic Stroke Statin Dosing Therapy Reference: STATIN DOSE THERAPY REFERENCE: * Patients > 75 years receive moderate or high dose statin therapy. * Patients 75 years or YOUNGER should receive HIGH intensity statin dose unless contraindicated. You will be required to document reason for non-treatment if statin daily dose does not meet guidelines. HIGH DOSE STATIN THERAPY DAILY Atorvastatin > than or = to 40 mg Rosuvastatin > than or = to 20 mg Amlodipine + Atorvastatin > than or = to 2.5/40 mg Ezetimibe + Simvastatin 10/80 mg Simvastatin 80mg Discharge Plan Admission Admit Date/Time: 09/03/24 16:21 Primary Reason for Your Visit: Intractable nausea vomiting Attending Provider: Hazel Whalen Primary Care Provider: Care Physician,No Primary Consulting Providers: Naty Montero Instructions Additional Instructions / Restrictions: 1. Highly recommend avoiding marijuana as we do believe that this is probably inducing nausea and vomiting for you. Would recommend follow-up with psychiatry for assistance in treatment of your bipolar disorder to help avoid marijuana use. Please see below. Discharge Orders/Prescriptions Prescriptions: New amoxicillin-pot clavulanate 875-125 mg tablet 1 tab PO BID Qty: 18 0RF Continued haloperidol 5 mg tablet 5 mg PO Q12H PRN PRN (Reason: nausea/vomiting) promethazine [Promethegan] 25 mg suppository 12.5 mg GA Q4H PRN PRN (Reason: nausea/vomiting) ondansetron 4 mg tablet,disintegrating 4 mg PO TID PRN PRN (Reason: nausea) omeprazole 40 mg capsule,delayed release(DR/EC) 40 mg PO DAILY 30 Days Qty: 30 0RF Referrals / Follow Up: Reggie Daugherty DO [Med Staff - Active Staff] - 09/19/24 10:00 am (with Heidy ASHER, GI office) Da Foote DO [Med Staff - Automation Controls Expert] - See Referral Note (Call to set up appointment to be seen as soon as there is availability in the doctor schedule) Care Physician,No Primary [Primary Care Provider] - Disposition Disposition (needs filled in before D/C Order can be placed): Home, Self Care Charges/Coding Visit Charges Inpatient E&M: 43180 Disch Hosp >30min
[2024-09-05 09:00] VITALS: BP 114/67; PULSE 95; RESP 16; TEMP 36.9; O2SAT 97
[2024-09-05 09:08] LABS: Anti-Centromere B Ab <0.2 AI (0.0-0.9); Anti-Chromatin <0.2 AI (0.0-0.9); Anti-Jo <0.2 AI (0.0-0.9); Anti-Scleroderma-70 AB <0.2 AI (0.0-0.9); Anti-dsDNA Ab <1 IU/mL (0-9); RNP Ab <0.2 AI (0.0-0.9); SJOGREN'S Anti-SS-A test < 0.2 AI (0.0-0.9); SJOGREN'S Anti-SS-B test < 0.2 AI (0.0-0.9); Smith Ab <0.2 AI (0.0-0.9)
[2024-09-05] MEDS: Pantoprazole Sodium 40 MG in 0.9% Normal Saline (100mL MB+) 100 ML 330 MG IV (09:47)
[2024-09-05] MEDS: Ciprofloxacin 400 MG/200 ML BAG 200 MG IV (10:27)
[2024-09-06 07:07] LABS: Cytoplasmic Ab (C-ANCA) <1:20 titer (Neg:<1:20); Perinuclear Ab (P-ANCA) <1:20 titer (Neg:<1:20)
[2024-09-06 20:08] LABS: Deamidated Gliadin IgA 2 units (0-19); Deamidated Gliadin IgG 2 units (0-19); Endomysial Antibody IgA Negative (Negative); Immunoglobulin A 111 mg/dL (87-352); Immunoglobulin E 14 IU/mL (6-495); Immunoglobulin G 779 mg/dL (586-1602); Immunoglobulin M 119 mg/dL (26-217); t-Transglutaminase IgA <2 U/mL (0-3)
== END 2024-09-05 13:34 | disposition home or self-care (01) | DRG 395 ==
LOC: ED 15:54 → MS3 16:26
PROVIDERS: Internal Medicine Gastroenterology; Admitting Provider Internal Medicine; Emergency Provider Emergency Medicine; Visit Provider Internal Medicine
PROC: 0DJ08ZZ Inspection of Upper Intestinal Tract, Via Natural or Artificial Opening Endoscopic (ICD-10-PCS; CPT 43235; principal; 2024-09-04 07:10)
DX: R11.15 Cyclical vomiting syndrome unrelated to migraine (principal); E87.6 Hypokalemia; F31.9 Bipolar disorder, unspecified; F12.20 Cannabis dependence, uncomplicated; K52.9 Noninfective gastroenteritis and colitis, unspecified; K30 Functional dyspepsia; Z90.49 Acquired absence of other specified parts of digestive tract; Z79.01 Long term (current) use of anticoagulants
CPT/HCPCS: 36415; 74177; 78226; 80048; 80053; 80076; 82085; 82550; 82784; 82785; 82803; 83516; 83615; 83690; 83735; 84100; 84703; 85025; 85027; 85652; 86037; 86140; 86225; 86235; 86255; 88305; 88342; 97802; 99285; A9537; Q9967; A4216; J0744; J2405

== ENCOUNTER 2025-03-21 13:21 | Emergency (ER) | payer OTHER, SELFPAY ==
[2025-03-21 13:21] VITALS: PULSE 82; RESP 16; TEMP 37.2; O2SAT 100; BMI 20.5
--- NOTE | 2025-03-21 14:33 | EDS_ITS ---
HPI HPI - GI History of Present Illness Chief Complaint: Nausea/Vomiting Narrative Narrative: 29 yo F with Hx of cholecystectomy complicated by bile duct injury and biliary stent placement/removal presents with 1 week or more of persistent nausea/vomiting and upper abdominal pain ?just below the breasts,? described as pulling under the sternum. Reports inability to tolerate even sips of fluid. Noted coffee-ground emesis last Monday during this episode, which led to ED visit at [place]. CT at there done during similar symptoms reportedly without acute findings. She was subsequently transferred to inpt ackerman at [place], but states no other testing was performed, just fluids and medicines for 3 days and she was discharged with no prescriptions. Chronic diarrhea since cholecystectomy; no hematochezia reported. States weight change from 130 to 117 over the past week per patient report. Denies marijuana use over the last week; was previously a regular user. [facility] Medical History (Updated 03/21/25 @ 17:[address] Farshad Maria MD) Marijuana dependence Home Medications ?Medication ?Instructions ?Recorded ?Last Taken ?Type metoclopramide HCl 10 mg tablet 10 mg PO Q6H PRN nause a and 03/21/25 Unknown Rx vomiting #16 tabs ondansetron 8 mg disintegrating 8 mg PO Q8H PRN nausea and 03/21/25 Unknown Rx tablet vomiting #16 tabs pantoprazole 40 mg tablet,delayed 40 mg PO DAILY #30 t abs 03/21/25 Unknown Rx release Allergy/AdvReac Type Severity Reaction Status Date / Time No Known Allergies Allergy Verified 03/21/25 13:23 Surgical History (Updated 03/21/25 @ 14:[address] Farshad Maria MD) History of cholecystectomy History of biliary duct stent placement Social History Smoking Status: Never smoker ROS ROS ED Constitutional Constitutional ED: Reports malaise; Denies chills or fever(s) Eyes Eyes: Denies change in vision or diplopia ENT ENT ED: Denies rhinorrhea or sore throat Cardiovascular Cardiovascular: Denies chest pain or palpitations Respiratory/Chest Respiratory/Chest: Denies cough or dyspnea Gastrointestinal Gastrointestinal: Reports abdominal pain, diarrhea, nausea and vomiting; Denies hematemesis, hematochezia or melena Genitourinary Genitourinary ED: Denies dysuria or hematuria Musculoskeletal Musculoskeletal: Denies back pain or neck pain Integumentary Denies abscess or rash Neurologic Neurologic: Denies headache(s), paresthesias or weakness Psychiatric Psychiatric: Denies suicidal thoughts EXAM Physical Exam Const Vital Signs: 03/21/25 13:21 03/21/25 15:21 03/21/25 17:00 Temperature 99 F Temperature Source Oral Pulse Rate 82 87 74 Respiratory Rate 16 20 H 15 Blood Pressure 151/93 H 131/78 H Blood Pressure Mean 112 95 Pulse Ox 100 100 100 Oxygen Delivery Method Room Air Room Air Room Air Positive well nourished and well developed General Appearance ED: well developed and NAD HEENT Reports moist mucous membranes normocephalic and atraumatic Eyes PERRL and EOMs intact bilaterally Neck full ROM and supple Resp normal respiratory effort and clear to auscultation bilaterally Cardio regular rate, regular rhythm and no murmurs GI non-distended GI Narrative: Mild diffuse tenderness but most prominent in the epigastrium. Flat abdomen. Normal inspection well-healed laparoscopic surgical incisions. Auscultation: normoactive bowel sounds Palpation: soft Back/Spine no CVA tenderness General Back: other FROM Extremity normal to inspection General Extremety ED: Negative for edema, pulses abnormal or tenderness General Extremity: Negative for edema or pulses abnormal Neuro oriented x3, CN's II-XII intact bilaterally and no sensory deficits noted Sensorium / Orientation: awake and alert Motor Exam: strength 5/5 throughout Psych Psych Narrative: A little anxious Skin no rashes or lesions noted and no wounds MDM MDM MDM Narrative Medical decision making narrative: 29 yo F with 1 week of persistent nausea/vomiting and epigastric pain, chronic diarrhea post-cholecystectomy, and coffee-ground emesis last Monday. Prior biliary stent placed/removed; previously regular marijuana use but stopped a week ago. PE: upper abd tenderness, worse midline/epigastric; lower abdomen less tender. Labs completed today normal: liver function tests and lipase normal; no leukocytosis. Prior CT ([facility] ~1.5 weeks ago) showed mild adenitis and mucosal thickening vs underfilling of transverse/descending colon; no acute process. DDx: gastroparesis (including non-diabetic), gastritis, duodenitis, cyclic vomiting syndrome, cannabinoid hyperemesis syndrome (CHS) discussed. CHS possible; resolution may require longer abstinence. Tx given: 1 L IV fluids, chlorpromazine (Thorazine), diphenhydramine (Benadryl), ketorolac, morphine; improved and tolerating oral intake. Plan: discharge with prescriptions for ondansetron (Zofran) and metoclopramide (Reglan); start daily proton pump inhibitor (PPI). No repeat imaging felt needed or indicated; prior CT obtained and reviewed. Follow up arranged; return if worsening. History & Record Review Additional record(s) reviewed:: Prior outpatient record (CT a/p performed 03/10 at [facility] - neg except for mild adenitis) Lab Data Attestation: I reviewed the patient's lab results. Labs: Laboratory Results - last 24 hr 03/21/25 14:16 WBC 6.8 RBC 4.98 Hgb 15.1 H Hct 41.9 MCV 84.1 MCH 30.3 MCHC 36.0 RDW Std Deviation 37.2 RDW Coeff of Renetta 12.4 Plt Count 350 MPV 9.4 Immature Gran % (Auto) 0.100 Neut % (Auto) 58.9 Lymph % (Auto) 29.1 [place] % (Auto) 10.8 H Eos % (Auto) 0.7 Baso % (Auto) 0.4 Absolute Neuts (auto) 4.0 Absolute Lymphs (auto) 1.97 Nucleated RBC % 0 Sodium 136 Potassium 3.7 Chloride 100 Carbon Dioxide 21.0 Anion Gap 15 BUN 8 Creatinine 0.79 Estim Creat Clear Calc 82.35 Est GFR (MDRD) Non-Af 104 BUN/Creatinine Ratio 9.9 L Glucose 116 H Calcium 10.0 Total Bilirubin 0.60 AST 22 ALT 17 Alkaline Phosphatase 53 Total Protein 7.6 Albumin 4.8 Globulin 2.8 Albumin/Globulin Ratio 1.7 Lipase 42 Serum , Qual NEGATIVE Discharge Plan Triage Chief Complaint: Nausea/Vomiting ED Provider: Farshad Maria Dx/Rx/DC Orders Clinical Impression: Cyclical vomiting, not intractable, Acute upper abdominal pain Instructions: ED Clear Liquid Diet, ED Vomiting (Adult) Prescriptions: New ondansetron 8 mg tablet,disintegrating 8 mg PO Q8H PRN (Reason: nausea and vomiting) Qty: 16 0RF pantoprazole 40 mg tablet,delayed release (DR/EC) 40 mg PO DAILY Qty: 30 0RF metoclopramide HCl 10 mg tablet 10 mg PO Q6H PRN (Reason: nausea and vomiting) Qty: 16 0RF Discontinued haloperidol 5 mg tablet 5 mg PO Q12H PRN PRN (Reason: nausea/vomiting) ondansetron 4 mg tablet,disintegrating 4 mg PO TID PRN PRN (Reason: nausea) Primary Care Provider: Care Physician,No Primary Referrals: Doctor,Your [Non-Staff, None] - 3-5 Days Activity Restrictions/Additional Instructions: Take the daily pantoprazole to help treat the possibility of gastritis. The other medications are as needed for nausea/vomiting. Try clear liquid diet for the next 48 hours or so. [place] and applesauce are okay to add to this. Print Language: [place] Disposition Disposition: Home, Self Care Discharge Date/Time: 03/21/25 17:34
--- NOTE | 2025-03-21 14:41 | CM.ED ---
Social work Reason for referral: no PCP Referral source: case find SW entered patient's room, introducing self and role at [facility]. Patient's mother at bedside and patient confirmed not having a PCP. Patient accepted resources of [facility] providers accepting new patients and Yoon Rajput information. Patient denied further needs at this time. Liliana Boyer, CITY CARRIER ASSISTANT, CAR BUILDER
[2025-03-21 14:51] LABS: Hematocrit 41.9 % (37-47); Hemoglobin 15.1 g/dL (12.0-15.0); Immature Granulocytes Count 0.010 X10^3/uL (0.0-0.0); Internal QC Validated? YES +Cl - CLEAR BKGD; Mean Corp Hgb Conc 36.0 g/dL (32-36); Mean Corpuscular Volume 84.1 fL (81-99); Mean Platelet Vol. 9.4 fl (6.2-12.0); NRBC Flagged by Analyzer 0 % (0-5); Platelet Count 350 K/mm3 (150-450); Pregnancy, Serum, hCG Quali. NEGATIVE Negative; RBC Distribution Width CV 12.4 % (11.6-14.6); RBC Distribution Width SD 37.2 fl (35.1-43.9); Red Blood Count 4.98 M/mm3 (4.2-5.4); White Blood Count 6.8 K/mm3 (4.4-11.0)
[2025-03-21] MEDS: 0.9% Normal Saline (1000mL) 1,000 ML 999 ML IV (14:56)
[2025-03-21] MEDS: Ketorolac 30 MG/ML Syringe IV (14:57)
[2025-03-21 15:11] LABS: Lipase 42 U/L (13-75)
[2025-03-21] MEDS: DiphenhydrAMINE 25 MG, ChlorproMAZINE 25 MG in 0.9% Normal Saline (100mL Bag) 98.5 ML 200 MG IV (15:12)
[2025-03-21 15:13] LABS: AST(SGOT) 22 U/L (<=31); Alanine Aminotransfer ALT/SGPT 17 U/L (<=34); Albumin, Serum 4.8 g/dL (3.5-5.0); Alkaline Phosphatase 53 U/L (35-104); Anion Gap 15 (5-15); BUN 8 mg/dL (4-19); BUN/Creat Ratio 9.9 RATIO (10-20); Calcium,Total 10.0 mg/dL (7.6-11.0); Carbon Dioxide 21.0 mmol/L (21.0-32.0); Chloride 100 mmol/L (98-108); Estimated Creatinine Clearance 82.35 ml/min (50-250); Globulin 2.8 g/dL (2.2-4.2); Glucose 116 mg/dL (70-99); Potassium 3.7 mmol/L (3.3-5.1)
[2025-03-21 15:21] VITALS: BP 151/93; PULSE 87; RESP 20; O2SAT 100
[2025-03-21 17:00] VITALS: BP 131/78; PULSE 74; RESP 15; O2SAT 100
[2025-03-21 17:33] VITALS: BP 131/78; PULSE 74; RESP 15; TEMP 36.6; O2SAT 100
== END 2025-03-21 17:34 | disposition home or self-care (01) ==
PROVIDERS: Emergency Provider Emergency Medicine; Visit Provider Emergency Medicine
DX: R11.15 Cyclical vomiting syndrome unrelated to migraine (principal); K52.9 Noninfective gastroenteritis and colitis, unspecified; Z90.49 Acquired absence of other specified parts of digestive tract; R53.81 Other malaise; R10.10 Upper abdominal pain, unspecified
CPT/HCPCS: 80053; 83690; 84703; 85025; 96361; 96374; 96375; 99283; A4216